=== PATIENT | male | born 1965 | race African-American/Black ===

== ENCOUNTER 2017-07-13 10:41 | Emergency (ER) | payer MEDICARE, MEDICAID ==
[2017-07-13 11:24] LABS: #Eosinphils 0.1 thou/uL (0.0-0.7); #Lymphocytes 1.6 thou/uL (1.20-3.40); #Monocytes 0.6 thou/uL (0.11-0.59); #Neutrophils 6.9 thou/uL (1.40-6.50); %Basophils 0.3 % (0.0-1.0); %Eosinophils 0.9 % (0.0-10.0); %Lymphocytes 17.3 % (21.0-51.0); %Monocytes 6.6 % (0.0-10.0); Mean Platelet Volume 7.2 fL (7.4-10.4); White Blood Cell (WBC) Count 9.3 thou/uL (4.8-10.8)
[2017-07-13 11:48] LABS: CK (CPK) 227 U/L (30-200); Lipase 55 U/L (8-78)
[2017-07-13 11:54] LABS: Troponin I 0.028 ng/mL (< 0.028)
--- NOTE | 2017-07-13 12:12 | RAD ---
CHEST 1 VIEW: Date: 07/13/17 HISTORY: Chest pain. COMPARISON: None. FINDINGS: Portable upright chest redemonstrates a left-sided transvenous pacemaker. Lead position is difficult to determine due to portal technique and underpenetration. Normal cardiac silhouette. No consolidatio n or mass. No obvious pneumothorax. IMPRESSION: Limited evaluation due to portable technique and resultant underpenetration. No acute cardiopulmonary process. Repeat imaging with 2 view chest radiograph is recommended. POS: [facility]
[2017-07-13 12:36] LABS: Bilirubin Negative (Negative); Blood, Urine Moderate (Negative); Glucose, Urine (Dipstick) Negative (Negative); Ketone, Urine Negative (Negative); Nitrite Negative (Negative); Protein, Urine (Dipstick) 300 mg/dL (Neg-Trace)
[2017-07-13 12:38] LABS: Hyaline Casts/LPF 0-3 HYALINE CAST LPF (0-3 Hyaline); Squamous Epithelial None Seen HPF (0-3)
[2017-07-13 12:58] LABS: Bacteria/HPF Rare-Few HPF (None Seen); Yeast-All Forms None Seen HPF (None Seen)
== END 2017-07-13 13:04 | disposition home or self-care (01) ==
LOC: ERS 10:41
DX: T82.118A Breakdown (mechanical) of other cardiac electronic device, initial encounter (principal); I11.0 Hypertensive heart disease with heart failure; I50.9 Heart failure, unspecified; J44.9 Chronic obstructive pulmonary disease, unspecified; E11.9 Type 2 diabetes mellitus without complications; M10.9 Gout, unspecified; E66.9 Obesity, unspecified; E78.5 Hyperlipidemia, unspecified; Z79.82 Long term (current) use of aspirin; Z79.899 Other long term (current) drug therapy
CPT/HCPCS: 36415; 71010; 81003; 81015; 82553; 83690; 84484; 85025; 93005

== ENCOUNTER 2017-08-28 21:00 | Observation (INO) | payer MEDICARE, MEDICAID ==
[2017-08-28] MEDS ORDERED: Nitroglycerin 2% Ointment 1 INCH/1 GM Packet ONE (21:54)
[2017-08-28] MEDS ORDERED: Nitroglycerin 0.4 MG TAB (25 Tab Bottle) ONE (21:54)
[2017-08-28 22:04] LABS: Troponin I 0.017 ng/mL (< 0.028)
[2017-08-29] MEDS ORDERED: Dextrose 5% in Water 1,000 ML IV PRN (00:32)
[2017-08-29] MEDS ORDERED: Dextrose 50% Abboject 50 ML SYRINGE IVP PRN (00:32)
[2017-08-29] MEDS ORDERED: Insulin Regular 300 UNITS/3 ML VIAL SC PRN (00:32)
[2017-08-29] MEDS ORDERED: Acetaminophen 325 MG TAB PO PRN ×2 (00:34→06:19)
[2017-08-29] MEDS ORDERED: Ondansetron HCl/PF 4 MG/2 ML Vial IVP PRN ×2 (00:34→06:19)
[2017-08-29] MEDS ORDERED: Ondansetron ODT 4 MG TAB SL PRN (00:34)
[2017-08-29] MEDS ORDERED: Nitroglycerin 2% Ointment 1 INCH/1 GM Packet TOP SCH (00:45)
[2017-08-29 01:02] LABS: Troponin I 0.019 ng/mL (< 0.028)
[2017-08-29 01:11] VITALS: BMI 68.9
[2017-08-29] MEDS ORDERED: Ondansetron ODT 4 MG TAB PO PRN (06:19)
[2017-08-29] MEDS ORDERED: Milk Of Magnesia 30 ML UDCUP PO PRN (06:19)
[2017-08-29] MEDS ORDERED: Senokot 8.6 MG TAB PO PRN (06:19)
[2017-08-29] MEDS ORDERED: Nitroglycerin 0.4 MG TAB (25 Tab Bottle) PO PRN (06:19)
[2017-08-29] MEDS ORDERED: PROVENTIL INHALER 6.7 G (200 INHALATIONS) INH PRN (06:21)
[2017-08-29] MEDS ORDERED: Aspirin 325 MG TAB PO SCH (09:00)
--- NOTE | 2017-08-29 09:16 | HP ---
DATE OF ADMISSION: 08/29/2017 PRIMARY CARE PHYSICIAN: Florence Almaguer M.D. PRIMARY TOWER EQUIPMENT INSTALLER: Marilu Galan M.D. CHIEF COMPLAINT: Chest discomfort. HISTORY OF PRESENT ILLNESS: Patient is a 52-year-old -[place] male with chronic systolic hea rt failure, status post AICD, morbid obesity with BMI more than 60, diabetes mellitus type 2, and LYRIC D, who presented to the emergency room with chest discomfort. He initially presented to [facility] and was transferred to this facility for hospital admission. Over the last 24 hours, the patient has on and off substernal pressure-like chest discomfort with dayana e intermittent lightheadedness. He also was short of breath at times. He had some palpitations with out any syncope. He denies recent immobilization, travel, fevers or chills. He denies any exertiona l shortness of breath or orthopnea. No recent immobilization or travel reported. He is compliant wi th all of his medications including aspirin. In the emergency room, his initial vital signs showed temperature 98.6, blood pressure 198/121, respi ration of 18, pulse rate of 87 with O2 saturation 93% on room air. His EKG showed sinus rhythm witho ut significant ST-T wave changes. He received aspirin in the emergency room. After transferred to [facility], he received sublingual nitroglycerin as well as 1 inch nitro patch. He denies any ches t discomfort at this time. PAST MEDICAL HISTORY: 1. Chronic systolic heart failure, status post AICD. 2. Diabetes mellitus type 2. 3. Hypertension. 4. Mild intermittent asthma. 5. GERD. 6. Morbid obesity with a BMI more than 60. PAST SURGICAL HISTORY: Defibrillator placement in 2013. ALLERGIES: No known drug allergies. CURRENT HOME MEDICATIONS: Albuterol inhaler as needed, amiodarone 200 mg twice a day, aspirin 81 mg daily, Lipitor 80 mg daily, carvedilol 25 mg three times daily, Lasix 40 mg b.i.d., glipizide extende d release twice daily as needed, hydralazine 100 mg t.i.d., linagliptin/metformin 2.12/999 two tablet s daily, and Entresto 97/103 b.i.d. SOCIAL HISTORY: Patient currently lives at home. No smoking, alcohol or drug use reported. FAMILY HISTORY: Mother with heart disease. REVIEW OF SYSTEMS: The following complete review of systems was negative, unless otherwise mentioned in the HPI or below: Constitutional: Weight loss or gain, ability to conduct usual activities. Skin: Rash, itching. Eyes: Double vision, pain. ENT/Mouth: Nose bleeding, neck stiffness, pain, tenderness. Cardiovascular: Palpitations, dyspnea on exertion, orthopnea. Respiratory: Shortness of breath, wheezing, cough, hemoptysis, fever or night sweats. Gastrointestinal: Poor appetite, abdominal pain, heartburn, nausea, vomiting, constipation, or diarr hea. Genitourinary: Urgency, frequency, dysuria, nocturia. Musculoskeletal: Pain, swelling. Neurologic/Psychiatric: Anxiety, depression. Allergy/Immunologic: Skin rash, bleeding tendency. PHYSICAL EXAMINATION: VITAL SIGNS: At this time showed blood pressure of 140/68. GENERAL: A 52-year-old male, morbidly obese, in no apparent distress. HEENT: Head is atraumatic, normocephalic. Sclerae are anicteric. Moist mucous membrane, no oral le sarah. NECK: Supple, no JVD appreciated. No carotid bruit. LUNGS: Clear to auscultation bilaterally, no wheezing or rales. HEART: S1 and S2 present. Regular rate and rhythm. No murmur, rubs, or gallops appreciated. AICD noted. ABDOMEN: Soft, nontender, bowel sounds present. EXTREMITIES: No edema or calf tenderness. Homans' sign was negative. SKIN: Warm and dry. LYMPH NODES: No palpable lymph nodes in the neck. PERIPHERAL VASCULAR: Radial pulses palpable bilaterally. MUSCULOSKELETAL: No joint swelling or tenderness. NEUROLOGIC: Grossly nonfocal, moves all four extremities. PSYCHIATRY: Alert, awake, and oriented x3. LABORATORY DATA AND IMAGING DATA: 1. Troponins have been negative. CBC showed WBC of 5.3 with hemoglobin 14.4. 2. Chemistries showed sodium 139, potassium 4.1, chloride 103, bicarbonate 26, BUN 16, creatinine 1. 02. 3. BNP was 60.5. 4. EKG by my review as discussed above. 5. Chest x-ray by my review was negative for infiltrate. IMPRESSION: 1. Pressure-like chest discomfort associated with lightheadedness and palpitations. 2. Chronic systolic heart failure, ejection fraction 20%-25% range, status post automated implantabl e cardioverter-defibrillator. 3. Morbid obesity with body mass index more than 60. 4. Hypertension. 5. Diabetes mellitus type 2. 6. Gastroesophageal reflux disease. 7. Mild intermittent asthma. PLAN: The patient will be monitored on telemetry. Cardiology will be consulted. His AICD will be i nterrogated. I considered DVT and pulmonary embolism, which appeared to be less likely. His Doppler of bilateral lower extremity was negative for DVT. His chest pain is not pleuritic. He denies any recent immobilization or travel. He has low Well's score. We will keep him n.p.o. Home medications including Entresto will be restarted. Hold metformin. Insulin sliding scale. Change aspirin to 32 5. Please note that patient was started on Plavix last admission. He is currently not on Plavix. We wi ll discuss with Cardiology, Dr. Galan. Plan of care was discussed with the patient in detail. He stated understanding.
[2017-08-29] MEDS: Sacubitril 49 MG/Valsartan 51 MG TABLET PO SCH ×2 (12:14→20:38)
[2017-08-29] MEDS: hydrALAZINE 25 MG TAB PO SCH ×3 (12:15→20:37)
[2017-08-29] MEDS: Carvedilol 25 MG TAB PO SCH ×3 (12:15→20:37)
[2017-08-29] MEDS: Furosemide 20 MG TAB PO SCH ×2 (12:15→14:29)
[2017-08-29] MEDS: Atorvastatin Calcium 40 MG TAB PO SCH (12:15)
[2017-08-29] MEDS: Amiodarone 200 MG TAB PO SCH ×2 (12:15→20:38)
[2017-08-29] MEDS: Aspirin 325 MG TAB PO SCH (12:16)
[2017-08-29] MEDS ORDERED: Furosemide 100 MG/10 ML VIAL SLOW IVP SCH (16:00)
[2017-08-29] MEDS ORDERED: Spironolactone 25 MG TAB PO SCH (16:00)
--- NOTE | 2017-08-29 23:33 | PRG ---
DATE OF SERVICE: 08/29/2017 SUBJECTIVE: Mr. Henning was admitted to the hospital with chest pressure associated with uncontrolled high blood pressure. Blood pressure is better now. He is feeling better now. OBJECTIVE: VITAL SIGNS: Blood pressure was extremely high initially with blood pressure 198/120, now it was men tioned his blood pressure is improved. LUNGS: Clear. CARDIAC: Normal S1, normal S2. ABDOMEN: Soft, nontender. EXTREMITIES: No edema. ASSESSMENT: 1. Hypertension, difficult to control. 2. Cardiomyopathy. 3. Cardiac catheterization showed no obstructive coronary artery disease, only minimal plaquing on p revious catheterization. 4. Morbid obesity, BMI 69. 5. Normal renal function. PLAN: 1. We will give him a single dose of furosemide. 2. Add spironolactone. 3. Probably home tomorrow if blood pressure is controlled. Defibrillator was checked that looks nor mal. He thinks the Entresto is causing some palpitations, but I doubt that is the cause. Also, inte rrogation of the defibrillator indicates he is volume overloaded. Probably, I also explained why his blood pressure is high.
[2017-08-30 06:15] LABS: Anion Gap 14 mmol/L (10-20); BUN (Urea Nitrogen) 16 mg/dL (8.9-20.6); Calc. Creatinine Clearance 222 mL/min (70-130); Calcium 9.1 mg/dL (7.8-10.44); Carbon Dioxide 27 mmol/L (22-29); Chloride 101 mmol/L (98-107); Estimated GFR-MDRD 80; Glucose 142 mg/dL (70-105); Potassium 3.8 mmol/L (3.5-5.1); Sodium 138 mmol/L (136-145)
[2017-08-30] MEDS: Aspirin 325 MG TAB PO SCH (08:37)
[2017-08-30] MEDS: Sacubitril 49 MG/Valsartan 51 MG TABLET PO SCH ×2 (08:37→20:40)
[2017-08-30] MEDS: Carvedilol 25 MG TAB PO SCH ×3 (08:38→20:40)
[2017-08-30] MEDS: hydrALAZINE 25 MG TAB PO SCH ×3 (08:38→20:40)
[2017-08-30] MEDS: Furosemide 20 MG TAB PO SCH ×2 (08:38→15:10)
[2017-08-30] MEDS: Amiodarone 200 MG TAB PO SCH ×2 (08:39→20:40)
[2017-08-30] MEDS: Spironolactone 25 MG TAB PO SCH (08:39)
[2017-08-30] MEDS: Atorvastatin Calcium 40 MG TAB PO SCH (08:39)
[2017-08-30] MEDS ORDERED: Furosemide 100 MG/10 ML VIAL SLOW IVP SCH (11:15)
[2017-08-30] MEDS ORDERED: Potassium Chloride 20 MEQ TAB PO SCH (11:15)
--- NOTE | 2017-08-30 11:18 | PRG ---
DATE OF SERVICE: 08/30/2017 Mr. Henning feels better, but had some chest tightness last night. The chest heaviness probably was h eart failure. He has no chest pain today. PHYSICAL EXAMINATION: VITAL SIGNS: Blood pressure is improved 152/67, pulse 70. His I&O, he put out almost 5 liters yeste rday. LUNGS: Clear. CARDIAC: Normal S1 and S2. ABDOMEN: Soft, nontender. EXTREMITIES: There is no edema. ASSESSMENT: 1. Congestive heart failure, systolic, acute on chronic, improving. 2. Previous pacemaker defibrillator. 3. He has somewhat widening of his QRS with QRS of 138 on admission, but the more recent QRS looks l elias it is more than 140 range. It is a left bundle branch block pattern. PLAN: 1. Give him an extra dose of Lasix. 2. Probably home tomorrow. Ultimately, he may need an upgrade to a biventricular pacemaker [facility].
--- NOTE | 2017-08-30 11:38 | PDOC.PN ---
- Subjective Encounter Start Date: 08/30/17 Encounter Start Time: 11:35 Patient seen and examined. SOB on mild exertion with intermittent chest pressur. Feels slightly better after diuresis. No overnight events - Objective Resuscitation Status: Resuscitation Status FULL:Full Resuscitation MAR Reviewed: Yes Vital Signs & Weight: Vital Signs (12 hours) Temp Pulse Resp BP BP Pulse Ox 08/30/17 08:38 74 08/30/17 08:00 98.0 F 74 16 08/30/17 07:55 97.9 F 69 20 152/67 H 08/30/17 04:16 98.0 F 74 16 166/89 H 99 08/30/17 02:04 146/90 H 08/30/17 00:03 72 16 141/79 H 97 Weight Weight 458 lb I&O: 08/29/17 08/30/17 08/31/17 06:59 06:59 06:59 Intake Total 480 1568 Output Total 500 4715 Balance -20 -9497 Result Diagrams: 08/30/17 04:25 Additional Labs: Accuchecks 08/30/17 08/29/17 08/29/17 11:18 20:38 17:04 POC Glucose 132 H 133 H 146 H EKG Reviewed by me: Yes (Tele SR) Phys Exam - Physical Examination Constitutional: NAD Respiratory: no wheezing, no rales Scat rhonchi, Symmetrical Cardiovascular: RRR, no rub no heaves/pulsations Gastrointestinal: soft, non-tender, no distention, positive bowel sounds Musculoskeletal: edema present (trace) Neurological: non-focal, moves all 4 limbs Psychiatric: normal affect, A&O x 3 Dx/Plan - Plan out of bed/ambulate, DVT proph w/SCDs IMPRESSION: 1. Chest discomfort. 2. Acute on chronic systolic heart failure (EF 20%-25%) s/p AICD 3. Morbid obesity with body mass index more than 60. 4. Hypertension. 5. Diabetes mellitus type 2. 6. Gastroesophageal reflux disease. 7. Mild intermittent asthma. PLAN: * Cont diuresis per Cardiology * AM labs * Cont Entresto with Aldactone * Cont current meds as below * consult CHF team Review of Systems - Medications/Allergies Allergies/Adverse Reactions: Allergies Allergy/AdvReac Type Severity Reaction Status Date / Time No Known Allergies Allergy Verified 08/29/17 00:54 Medications: Current Medications Acetaminophen (Tylenol) 650 mg PO Q4H PRN PRN Reason: Headache/Fever or Pain Albuterol Sulfate (Proventil Hfa) 1 puff INH Q4H PRN PRN Reason: SOB &/or Wheezing Amiodarone HCl (Cordarone) 200 mg PO BID [facility] Last Admin: 08/30/17 08:39 Dose: 200 mg Aspirin (Ecotrin) 81 mg PO DAILY [facility] Atorvastatin Calcium (Lipitor) 80 mg PO DAILY [facility] Last Admin: 08/30/17 08:39 Dose: 80 mg Carvedilol (Coreg) 25 mg PO TID [facility] Last Admin: 08/30/17 08:38 Dose: 25 mg Furosemide (Lasix) 40 mg PO 0900,1400 [facility] Last Admin: 08/30/17 08:38 Dose: 40 mg Furosemide (Lasix) 80 mg SLOW IVP NOW [facility] Stop: 08/30/17 13:15 Last Admin: 08/30/17 11:17 Dose: 80 mg Hydralazine HCl (Apresoline) 100 mg PO TID [facility] Last Admin: 08/30/17 08:38 Dose: 100 mg Magnesium Hydroxide (Milk Of Magnesium) 30 ml PO DAILYPRN PRN PRN Reason: Constipation Nitroglycerin (Nitrostat) 0.4 mg PO Q5MIN PRN PRN Reason: Chest Pain Ondansetron HCl (Zofran Odt) 4 mg PO Q6H PRN PRN Reason: Nausea/Vomiting Ondansetron HCl (Zofran) 4 mg IVP Q6H PRN PRN Reason: Nausea/Vomiting Potassium Chloride (K-Dur) 40 meq PO NOW [facility] Stop: 08/30/17 13:15 Last Admin: 08/30/17 11:17 Dose: 40 meq Sacubitril/Valsartan (Entresto 49 Mg-51 Mg Tablet) 2 tab PO BID [facility] Last Admin: 08/30/17 08:37 Dose: 2 tab Senna (Senokot) 2 tab PO HSPRN PRN PRN Reason: Constipation Sodium Chloride (Flush - Normal Saline) 10 ml IVF Q12HR [facility] Last Admin: 08/30/17 08:39 Dose: 10 ml Sodium Chloride (Flush - Normal Saline) 10 ml IVF PRN PRN PRN Reason: Saline Flush Spironolactone (Aldactone) 25 mg PO QAM-WM [facility] Last Admin: 08/30/17 08:39 Dose: 25 mg
--- NOTE | 2017-08-31 00:51 | EKG ---
Test Reason : Blood Pressure : / mmHG Vent. Rate : 080 BPM Atrial Rate : 080 BPM P-R Int : 196 ms QRS Dur : 140 ms QT Int : 444 ms P-R-T Axes : 039 -46 071 degrees QTc Int : 512 ms Sinus rhythm with frequent Premature ventricular complexes Left axis deviation Left ventricular hypertrophy with QRS widening Inferior infarct , age undetermined Cannot rule out Anterior infarct , age undetermined Abnormal ECG When compared with ECG of 28-AUG-2017 21:23, (Unconfirmed) Premature ventricular complexes are now Present Left bundle branch block is no longer Present Minimal criteria for Anterior infarct are now Present Inferior infarct is now Present Confirmed by PRANAV JARAMILLO, DR. Watson ([id number]) on 08/31/2017 12:51:35 AM Referred By: MEGHANA Confirmed By:DR. Walter ROCK MD
[2017-08-31 05:35] LABS: Anion Gap 14 mmol/L (10-20); BUN (Urea Nitrogen) 17 mg/dL (8.9-20.6); Calc. Creatinine Clearance 205 mL/min (70-130); Calcium 9.1 mg/dL (7.8-10.44); Carbon Dioxide 28 mmol/L (22-29); Chloride 100 mmol/L (98-107); Estimated GFR-MDRD 75; Glucose 125 mg/dL (70-105); Potassium 3.8 mmol/L (3.5-5.1); Sodium 138 mmol/L (136-145)
[2017-08-31 07:50] VITALS: TEMP 97.8
[2017-08-31] MEDS ORDERED: Aspirin 81 mg Enteric Coated Tablet PO SCH (09:00)
[2017-08-31] MEDS: Amiodarone 200 MG TAB PO SCH (09:25)
[2017-08-31] MEDS: Atorvastatin Calcium 40 MG TAB PO SCH (09:25)
[2017-08-31] MEDS: Carvedilol 25 MG TAB PO SCH (09:25)
[2017-08-31] MEDS: hydrALAZINE 25 MG TAB PO SCH (09:25)
[2017-08-31] MEDS: Furosemide 20 MG TAB PO SCH (09:25)
[2017-08-31] MEDS: Spironolactone 25 MG TAB PO SCH (09:25)
[2017-08-31] MEDS: Sacubitril 49 MG/Valsartan 51 MG TABLET PO SCH (09:26)
--- NOTE | 2017-08-31 09:56 | PRG ---
DATE OF SERVICE: 08/31/2017 SUBJECTIVE: Mr. Henning is breathing better, no complaints, feels much better. No chest pain. PHYSICAL EXAMINATION: VITAL SIGNS: His blood pressure is 148/84, pulse 80, it is regular. LUNGS: Clear. CARDIAC: Normal S1, normal S2. EXTREMITIES: There are some decreased edema. Patient's I and O yesterday was another 2 liters negative. He has been over 5 liters negative since admission, down 19 pounds. ASSESSMENT: Congestive heart failure, systolic, acute on chronic, improved. PLAN: He will go home on the same medicines he came in with the addition of spironolactone 25 mg a d ay, to come back and see me in the office within a month.
--- NOTE | 2017-08-31 10:41 | DIS ---
DATE OF DISCHARGE: 08/31/2017 DISCHARGE DISPOSITION: Home. FOLLOWUP: 1. Follow up with primary care physician, Dr. Florence Almaguer, in 1 week. 2. Follow up with Cardiology, Dr. Galan as scheduled. Base met every week x2, then every 2 weeks x2 is recommended. Primary care physician advised to foll ow. ALLERGIES: No known drug allergies. DISCHARGE MEDICATIONS: Aldactone 25 mg daily, (new medication). Other home medications were resumed including Lasix 40 mg b.i.d., Entresto 97/103 b.i.d., aspirin 81 mg daily, amiodarone 200 mg b.i.d., albuterol inhaler as needed, Lipitor 80 mg daily, carvedilol 25 m g three times daily, glipizide extended release 10 mg twice daily as needed, hydralazine 100 mg three times daily, linagliptin/metformin 2.12/999 two tablets daily. INPATIENT CONSULTANTS: Cardiology, Dr. Galan. BRIEF HOSPITAL COURSE: The patient is a 52-year-old male with chronic systolic heart failure, status post AICD, who presented to the hospital with chest discomfort along with shortness of breath. Bryan willett refer to the history and physical dated 08/29/2017, for further details. The patient was admitted to the hospital with the diagnosis of acute on chronic systolic heart failur e exacerbation. His troponins were normal. He showed good improvement with IV diuretics. His weigh t on the day of discharge is 448 pounds from 467 pounds on admission. He is almost 5 liters negative . He was extensively counseled on heart failure. Aldactone has been added to his regimen. He will benefit from frequent labs while on Aldactone as well as Entersto. He has been cleared by Cardiology for discharge. FINAL DIAGNOSES: 1. Acute on chronic systolic heart failure exacerbation, ejection fraction 20% to 25% range. 2. Status post automatic implantable cardioverter defibrillator. 3. Chest discomfort secondary to #1. 4. Morbid obesity with a BMI of 66.3. 5. Hypertension. 6. Diabetes mellitus type 2. 7. Gastroesophageal reflux disease. 8. Mild intermittent asthma. 9. Chronic kidney disease stage 2. Plan of care was discussed with the patient in detail. He stated understanding.
[2017-08-31 14:38] VITALS: BP 124/60
== END 2017-08-31 12:50 | disposition home or self-care (01) ==
LOC: ERS 21:00 → 2SW 08-29 00:21
PROVIDERS: ADMIT Family Medicine; ATTEND Family Medicine
DX: E11.22 Type 2 diabetes mellitus with diabetic chronic kidney disease (principal); I13.0 Hypertensive heart and chronic kidney disease with heart failure and stage 1 through stage 4 chronic kidney disease, or unspecified chronic kidney disease; N18.2 Chronic kidney disease, stage 2 (mild); I50.23 Acute on chronic systolic (congestive) heart failure; K21.9 Gastro-esophageal reflux disease without esophagitis; J45.20 Mild intermittent asthma, uncomplicated; E66.01 Morbid (severe) obesity due to excess calories; Z68.44 Body mass index [BMI] 60.0-69.9, adult; Z79.82 Long term (current) use of aspirin; Z79.84 Long term (current) use of oral hypoglycemic drugs; Z79.899 Other long term (current) drug therapy; Z95.810 Presence of automatic (implantable) cardiac defibrillator; Z82.49 Family history of ischemic heart disease and other diseases of the circulatory system
CPT/HCPCS: 80048 ×2; 82962 ×3; 83735; 84484 ×2; 93005 ×2; 93798; 94760 ×3; 96374; 96375; 99285; G0378 ×2; 36415; 36416; 93010; A4216; J1940

== ENCOUNTER 2018-06-22 19:07 | Inpatient (IN) | payer MEDICARE, MEDICAID ==
[2018-06-22] MEDS ORDERED: Magnesium 2 GM/50 ML BAG (IN WATER) ONE (20:06)
[2018-06-22] MEDS ORDERED: methylPREDNISolone Sod Succ/PF 125 MG/2 ML VIAL ONE (20:06)
[2018-06-22] MEDS ORDERED: Water For Inject, Bacteriostat 30 ML ONE (20:06)
[2018-06-22] MEDS ORDERED: Labetalol HCl 100 MG/20 ML VIAL ONE (20:06)
[2018-06-22] MEDS ORDERED: Ondansetron ODT 4 MG TAB SL PRN (23:00)
[2018-06-22] MEDS ORDERED: Ondansetron PF 4 MG/2 ML Vial IVP PRN (23:00)
[2018-06-22 23:38] VITALS: BMI 70.9
[2018-06-23] MEDS ORDERED: Ondansetron ODT 4 MG TAB PO PRN ×2 (08:10)
[2018-06-23] MEDS ORDERED: Labetalol HCl 100 MG/20 ML VIAL SLOW IVP PRN (08:10)
[2018-06-23] MEDS ORDERED: Ondansetron PF 4 MG/2 ML Vial IVP PRN ×2 (08:10)
[2018-06-23] MEDS ORDERED: Acetaminophen 325 MG TAB PO PRN (08:10)
[2018-06-23] MEDS ORDERED: HumaLOG 300 UNITS/3 ML VIAL SC PRN ×2 (08:10)
[2018-06-23] MEDS ORDERED: Dextrose 50% Abboject 50 ML SYRINGE SLOW IVP PRN (08:10)
[2018-06-23] MEDS ORDERED: Dextrose 5% in Water 1,000 ML IV PRN (08:10)
[2018-06-23] MEDS ORDERED: hydrALAZINE 20 MG/ML VIAL SLOW IVP PRN (08:10)
--- NOTE | 2018-06-23 08:33 | HP ---
PRIMARY CARE PHYSICIAN: Dr. Almaguer. CHIEF COMPLAINT: Congestion and shortness of breath. HISTORY OF PRESENT ILLNESS: Mr. 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 The last ejection fraction was approximately 30%-35% in 2016. He also h as a history of asthma and COPD. He says he was in his usual state of health until he started having cold. He says he started having congestion, and wheezing about a week ago. He says that it usually would get worse at night. He would have to take a breathing treatment at night in order to sleep an d then the next day, he would feel a little bit better; however, it started to get progressively wors e where he was initially coughing, having a dry cough, but now the cough has been productive of yello wish sputum and it has been very thick and this has been over the last few days. He denies any blood in the sputum. He also says that he was getting progressively more short of breath. The shortness of breath did not seem to be affected by position; however, he does say he cannot sleep flat and lays on 4 pillows, but that has been stable over the last few months. He also denies any fevers or chill s or any chest pain, no nausea, no vomiting. His symptoms got to the point where he came to the ER f or evaluation. A chest x-ray was done; however, due to his body habitus, it was difficult to read, b ut it did not appear to have any excessive fluid buildup and his BNP was in the normal range. Theref ore, he is being admitted for probable chronic obstructive pulmonary disease exacerbation. The patie nt says he has some lower extremity edema. It has been about the same, maybe only slightly increase in usual and again no chest pains, no palpitations, etc. REVIEW OF SYSTEMS: All systems were reviewed and are negative except for that mentioned in the histo ry of present illness. PAST MEDICAL HISTORY: Significant for chronic systolic heart failure, EF of 30%-35%, diabetes mellit us type 2, hypertension, asthma, gastroesophageal reflux disease, obesity, COPD, and obstructive slee p apnea. He is not using a BiPAP. Sleep study was done in 2017 showing severe sleep apnea and was r ecommended BiPAP with an IPAP of 25, EPAP of 15. PAST SURGICAL HISTORY: Has had an AICD. ALLERGIES: No known drug allergies. SOCIAL HISTORY: He is single, but has a girlfriend he has lived for 8 years and the girlfriend could be his surrogate decision maker and her name is Adelita Bridges. He denies any alcohol use or any tobacc o use. He has 2 daughters, age 23 and 11. FAMILY HISTORY: Significant for heart disease. CURRENT MEDICATIONS: Include albuterol inhaler 2 puffs q.4 hours as needed, amiodarone 200 mg twice daily, aspirin 81 mg daily, Lipitor 80 mg at bedtime, carvedilol 25 mg t.i.d., vitamin D3 5000 units daily, Lasix 40 mg twice daily, glipizide 10 mg daily, hydralazine 100 mg t.i.d., Jentadueto XR 2.5 m g/1000 mg daily, omeprazole 20 mg daily, Entresto 97/103 mg twice a day, spironolactone 25 mg daily. PHYSICAL EXAMINATION: GENERAL: He is alert and oriented. He appears to be in no acute distress. He is well developed. Justino art is morbidly obese and his weight is 480 pounds and he is 5 feet 9 inches. The BMI was 70.9. VITAL SIGNS: The blood pressure initially was elevated at 234/154, now it is 160/95, heart rate 93, respiratory rate of 22, temperature is 98.6. HEENT: Pupils are equal, round, and reactive. Extraocular muscles are intact. Sclerae are anicteri c. Throat: There is no erythema, no exudates. NECK: No adenopathy, no bruits, no jugular venous distention. LUNGS: He had some coarse breath sounds, possible rhonchi at the bases, but no overt rales, no wheez ing was noted. CARDIOVASCULAR: Heart tones were distant. He had a normal S1 and S2 that was appreciated. I was no t able to appreciate any murmurs, clicks or rubs. ABDOMEN: Obese, it was soft, nontender, nondistended. No appreciable organomegaly. EXTREMITIES: He had some nonpitting edema. There is no redness, no warmth. NEUROLOGIC: His cranial nerves II through XII are intact. Muscle strength is 5/5 in both his upper and lower extremities. SKIN AND INTEGUMENT: There are no skin changes. No rash. LABORATORY WORK: White blood cell count 4.6, hemoglobin 14.7, hematocrit is 45.5, platelet count was 171. His sodium is 142, potassium 4.4, chloride is 103, CO2 is 28, BUN of 16, creatinine of 1.37, g lucose is 136 and he had a BNP which was 51. IMAGING STUDIES: His chest x-ray and this is by my reading is poorly penetrated. He had a mild card iomegaly and possible increase in his pulmonary vascular markings in the right base. The diaphragms were obscured, but this is likely due to poor penetration due to his body habitus. ASSESSMENT AND PLAN: This is a pleasant 53-year-old gentleman who presents with progressive cough an d congestion and shortness of breath. His chest x-ray was essentially clear. BNP was within the nor mal range. Therefore, it is likely that this does represent a chronic obstructive pulmonary disease exacerbation. He also had an extremely elevated blood pressure on admission with a systolic above 20 0 and diastolic, which was quite elevated. I am unsure what size of cuff they used, but he could hav e some mild pulmonary edema associated or congestive heart failure exacerbation associated with hyper tensive urgency. He will therefore be admitted to telemetry. 1. With regards to the chronic obstructive pulmonary disease exacerbation, we will place him on empi donaldo IV antibiotics, IV steroids for very short course, DuoNeb and consider a long-acting beta agonist . 2. Hypertensive urgency. This appears to have improved. We will continue his usual home medication s and p.r.n. blood pressure medications. 3. Chronic systolic heart failure. We will continue his home medications. 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 4. Diabetes mellitus. We will continue his usual medications along with a sliding scale insulin. 5. For the obstructive sleep apnea, he may require BiPAP while or CPAP while in the hospital. We ca n use the settings that were indicated on his sleep study a year ago if necessary and I have encourag ed him to follow up with trying to obtain a BiPAP machine in the outpatient setting.
[2018-06-23] MEDS ORDERED: LINAGLIPTIN PO SCH (09:00)
[2018-06-23] MEDS ORDERED: METFORMIN HCL PO SCH (09:00)
[2018-06-23] MEDS ORDERED: [UNRECOGNIZED DRUG - OTHER] PO SCH (09:00)
[2018-06-23] MEDS: Heparin 5,000 UNITS/ML VIAL SC SCH ×3 (09:33→21:55)
[2018-06-23] MEDS: Furosemide 40 MG TAB PO SCH ×2 (09:36→21:56)
[2018-06-23] MEDS: metFORMIN XR 500 MG TAB PO SCH (09:37)
[2018-06-23] MEDS: hydrALAZINE 25 MG TAB PO SCH ×3 (09:38→21:56)
[2018-06-23] MEDS: Amiodarone 200 MG TAB PO SCH ×2 (09:39→21:56)
[2018-06-23] MEDS: Aspirin 81 mg Enteric Coated Tablet PO SCH (09:40)
[2018-06-23] MEDS: Carvedilol 25 MG TAB PO SCH ×3 (09:40→21:56)
[2018-06-23] MEDS: Alogliptin 25 MG TAB PO SCH (09:40)
[2018-06-23] MEDS: Sacubitril 49 MG/Valsartan 51 MG TABLET PO SCH ×2 (11:09→21:55)
[2018-06-23] MEDS ORDERED: Sodium Chloride 0.9% 10 ML ONE (17:57)
[2018-06-23] MEDS: Atorvastatin Calcium 40 MG TAB PO SCH (21:56)
[2018-06-24 05:46] LABS: Anion Gap 13 mmol/L (10-20); BUN (Urea Nitrogen) 24 mg/dL (8.4-25.7); Calc. Creatinine Clearance 209 mL/min (70-130); Calcium 8.7 mg/dL (7.8-10.44); Carbon Dioxide 28 mmol/L (22-29); Chloride 100 mmol/L (98-107); Estimated GFR-MDRD 71; Glucose 113 mg/dL (70-105); Sodium 137 mmol/L (136-145)
[2018-06-24 06:39] LABS: #Lymphocytes 1.3 thou/uL (1.20-3.40); #Monocytes 0.9 thou/uL (0.11-0.59); #Neutrophils 5.6 thou/uL (1.40-6.50); %Basophils 0.4 % (0.0-1.0); %Eosinophils 0.1 % (0.0-10.0); %Lymphocytes 16.8 % (21.0-51.0); %Monocytes 10.9 % (0.0-10.0); %Neutrophils 71.8 % (42.0-75.0); Hemoglobin 15.3 g/dL (14.0-18.0); Mean Corpuscular HGB CONC 30.7 g/dL (32.0-36.0); Mean Corpuscular Hemoglobin 29.1 pg (27.0-31.0); Mean Corpuscular Volume 94.9 fL (78.0-98.0); Mean Platelet Volume 8.3 fL (7.4-10.4); Platelet Count 228 thou/uL (130-400); Red Blood Cell (RBC) Count 5.25 mill/uL (4.70-6.10); White Blood Cell (WBC) Count 7.8 thou/uL (4.8-10.8)
[2018-06-24] MEDS: Spironolactone 25 MG TAB PO SCH (09:45)
[2018-06-24] MEDS: Sodium Chloride 0.9% 10 ML ONE (09:45)
[2018-06-24] MEDS: metFORMIN XR 500 MG TAB PO SCH (09:46)
[2018-06-24] MEDS: Sacubitril 49 MG/Valsartan 51 MG TABLET PO SCH ×2 (09:46→20:32)
[2018-06-24] MEDS: Furosemide 40 MG TAB PO SCH ×2 (09:46→20:32)
[2018-06-24] MEDS: hydrALAZINE 25 MG TAB PO SCH ×3 (09:47→20:32)
[2018-06-24] MEDS: Amiodarone 200 MG TAB PO SCH ×2 (09:47→20:32)
[2018-06-24] MEDS: Carvedilol 25 MG TAB PO SCH ×3 (09:47→20:32)
[2018-06-24] MEDS: Aspirin 81 mg Enteric Coated Tablet PO SCH (09:48)
[2018-06-24] MEDS: Alogliptin 25 MG TAB PO SCH (09:48)
[2018-06-24] MEDS: Heparin 5,000 UNITS/ML VIAL SC SCH ×3 (09:55→20:32)
--- NOTE | 2018-06-24 11:33 | PDOC.PN ---
- Subjective Encounter Start Date: 06/24/18 Encounter Start Time: 11:32 was seen today in follow-up.He says he is less short of breath this morning. 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 - Objective Resuscitation Status: Resuscitation Status FULL:Full Resuscitation MAR Reviewed: Yes Vital Signs & Weight: Vital Signs (12 hours) Temp Pulse Resp BP BP BP Pulse Ox 06/24/18 09:47 81 177/105 H 06/24/18 08:00 98 06/24/18 07:20 98.3 F 81 20 177/105 H 98 06/24/18 06:33 79 14 90 L 06/24/18 04:30 98.3 F 77 14 150/80 H 91 L Weight Admit Weight 480 lb 1 oz Weight 479 lb 9 oz I&O: 06/23/18 06/24/18 06/25/18 06:59 06:59 06:59 Intake Total 960 1080 Output Total 800 1750 Balance 160 -670 Result Diagrams: 06/24/18 05:03 06/24/18 05:03 Additional Labs: Accuchecks 06/24/18 06/23/18 06/23/18 06:04 20:42 17:24 POC Glucose 88 138 H 115 H Phys Exam - Physical Examination HEENT: PERRLA Respiratory: no rales, no rhonchi, wheezing present + scattered wheezing bilaterally, no rales Cardiovascular: RRR, no significant murmur, no rub no gallop Gastrointestinal: soft, non-tender, no distention, positive bowel sounds Musculoskeletal: edema present 2+ pitting edema in the lower extremities Neurological: non-focal Dx/Plan (1) Acute bronchitis with asthma Code(s): J20.9 - ACUTE BRONCHITIS, UNSPECIFIED; J45.909 - UNSPECIFIED ASTHMA, UNCOMPLICATED Status: Acute (2) Acute respiratory failure Code(s): J96.00 - ACUTE RESPIRATORY FAILURE, UNSP W HYPOXIA OR HYPERCAPNIA Status: Acute (3) Diabetes mellitus type 2 in obese Code(s): E11.69 - TYPE 2 DIABETES MELLITUS WITH OTHER SPECIFIED COMPLICATION; E66.9 - OBESITY, UNSPECIFIED Status: Chronic (4) Hypertension Code(s): I10 - ESSENTIAL (PRIMARY) HYPERTENSION Status: Chronic (5) Morbid obesity with BMI of 70 and over, adult Code(s): E66.01 - MORBID (SEVERE) OBESITY DUE TO EXCESS CALORIES; Z68.45 - BODY MASS INDEX (BMI) 70 OR GREATER, ADULT Status: Chronic - Plan * Acute respiratory failure due to Bronchitis- will continue IV Levaquin, and Duoneb treatments. He could have Pneumonia ( ? Infiltrate in the right base)- but due to his body habitus this is difficult to determine. * Hypertensive Urgency- this has resolved- but his blood pressure is still elevated- will add Amlodipine * DM- blood glucose is stable * Chronic systolic heart failure- compensated * If he continues to improve then discharge home in AM
[2018-06-24] MEDS: Amlodipine 5 MG TAB PO SCH (17:51)
[2018-06-24] MEDS: Atorvastatin Calcium 40 MG TAB PO SCH (20:32)
[2018-06-25] MEDS: Heparin 5,000 UNITS/ML VIAL SC SCH ×2 (09:41→15:59)
[2018-06-25] MEDS: Sacubitril 49 MG/Valsartan 51 MG TABLET PO SCH (09:43)
[2018-06-25] MEDS: metFORMIN XR 500 MG TAB PO SCH (09:44)
[2018-06-25] MEDS: Amiodarone 200 MG TAB PO SCH (09:45)
[2018-06-25] MEDS: hydrALAZINE 25 MG TAB PO SCH ×2 (09:45→15:59)
[2018-06-25] MEDS: Furosemide 40 MG TAB PO SCH (09:46)
[2018-06-25] MEDS: Carvedilol 25 MG TAB PO SCH ×2 (09:46→16:00)
[2018-06-25] MEDS: Aspirin 81 mg Enteric Coated Tablet PO SCH (09:46)
[2018-06-25] MEDS: Spironolactone 25 MG TAB PO SCH (09:46)
[2018-06-25] MEDS: Alogliptin 25 MG TAB PO SCH (09:46)
[2018-06-25] MEDS: Sodium Chloride 0.9% 10 ML ONE (09:47)
--- NOTE | 2018-06-25 13:39 | PDOC.PN ---
- Subjective Encounter Start Date: 06/25/18 Encounter Start Time: 11:30 -: old records requested/rev Pt seen and examined, chart reviewed in its entirety, this is my first visit with this patient follow up for: No F/C, no N/V/D/C, no CP or SOB All systems reviewed and neg except as above - Objective Resuscitation Status: Resuscitation Status FULL:Full Resuscitation MAR Reviewed: Yes Vital Signs & Weight: Vital Signs (12 hours) Temp Pulse Resp BP BP BP Pulse Ox 06/25/18 12:35 98.2 F 78 16 152/71 H 100 06/25/18 09:45 83 173/69 H 06/25/18 08:00 97.8 F 83 18 173/69 H 97 06/25/18 06:36 78 16 93 L 06/25/18 04:25 97.7 F 83 17 147/72 H 93 L Weight Admit Weight 480 lb 1 oz Weight 475 lb 1 oz I&O: 06/24/18 06/25/18 06/26/18 06:59 06:59 06:59 Intake Total 1080 1120 Output Total 1750 2000 Balance -670 -880 Result Diagrams: 06/24/18 05:03 06/24/18 05:03 Additional Labs: Accuchecks 06/25/18 06/25/18 06/24/18 10:53 05:55 20:30 POC Glucose 74 84 119 H 06/24/18 16:53 POC Glucose 82 Radiology Reviewed by me: Yes EKG Reviewed by me: Yes Dx/Plan (1) Acute bronchitis with asthma Code(s): J20.9 - ACUTE BRONCHITIS, UNSPECIFIED; J45.909 - UNSPECIFIED ASTHMA, UNCOMPLICATED Status: Acute (2) Acute respiratory failure Code(s): J96.00 - ACUTE RESPIRATORY FAILURE, UNSP W HYPOXIA OR HYPERCAPNIA Status: Acute (3) Diabetes mellitus type 2 in obese Code(s): E11.69 - TYPE 2 DIABETES MELLITUS WITH OTHER SPECIFIED COMPLICATION; E66.9 - OBESITY, UNSPECIFIED Status: Chronic (4) Asthma Code(s): J45.909 - UNSPECIFIED ASTHMA, UNCOMPLICATED Status: Acute (5) Congestive heart failure (CHF) Code(s): I50.9 - HEART FAILURE, UNSPECIFIED Status: Acute Qualifiers: Qualified Code(s): I50.22 - Chronic systolic (congestive) heart failure (6) Diabetes type 2, uncontrolled Code(s): E11.65 - TYPE 2 DIABETES MELLITUS WITH HYPERGLYCEMIA Status: Acute (7) GERD (gastroesophageal reflux disease) Code(s): K21.9 - GASTRO-ESOPHAGEAL REFLUX DISEASE WITHOUT ESOPHAGITIS Status: Acute (8) Ventricular tachycardia Code(s): I47.2 - VENTRICULAR TACHYCARDIA Status: Acute (9) Hypertension Code(s): I10 - ESSENTIAL (PRIMARY) HYPERTENSION Status: Chronic (10) Morbid obesity with BMI of 70 and over, adult Code(s): E66.01 - MORBID (SEVERE) OBESITY DUE TO EXCESS CALORIES; Z68.45 - BODY MASS INDEX (BMI) 70 OR GREATER, ADULT Status: Chronic - Plan * .
[2018-06-25 15:58] VITALS: BP 179/97; TEMP 98.5
[2018-06-25] MEDS: Amlodipine 5 MG TAB PO SCH (16:00)
--- NOTE | 2018-06-27 15:43 | PQF ---
JESUS NAVARRETE JR, TONI MD [id number] [facility]-256 [id number] CLINICAL DOCUMENTATION CLARIFICATION FORM: POST DISCHARGE Addendum to original discharge summary date: ____ Late entry note date: __ DATE: 06/27/2018 ATTN: DR. WEAVER Please exercise your independent, professional judgment in responding to the clarification form. Clinical indicators are provided on the bottom of this form for your review Please check appropriate box(s): [ ] Acute Respiratory Failure: [ ] with Hypoxia[ ] with Hypercapnia [ X ] Acute On Chronic Respiratory Failure: [ ] with Hypoxia [ ] with Hypercapnia [ ] Acute Respiratory Failure due to: (etiology) [ ] Hypoxia [ ] Other diagnosis [ ] Unable to determine In addition, please specify: Present on Admission (POA): [ X] Yes [ ] No [ ] Unable to determine For continuity of documentation, please document condition throughout progress notes and discharge summary. Thank You. CLINICAL INDICATORS - SIGNS / SYMPTOMS / LABS: ER report - hypoxia H&P - COPD exac PN - Acute respiratory failure, unspecified RISK FACTORS: CHF exac Morbid obesity HTN DM TREATMENTS: Respiratory treatments - Duoneb treatments Serial CXR Antibiotics IV - Levaquin (This form is maintained as a part of the permanent medical record) 2014 [email or web address], [employer]. All Rights Reserved Vonda Mckay, CCS, DRY BOSS-H [email or web address] [phone] MTDD
== END 2018-06-25 18:23 | disposition home or self-care (01) | DRG 189 ==
LOC: ERS 19:07 → 2NO 20:00
PROVIDERS: ADMIT Family Medicine; ATTEND Family Medicine
DX: J96.20 Acute and chronic respiratory failure, unspecified whether with hypoxia or hypercapnia (principal); J44.1 Chronic obstructive pulmonary disease with (acute) exacerbation; I47.2 Ventricular tachycardia; Z68.45 Body mass index [BMI] 70 or greater, adult; I50.22 Chronic systolic (congestive) heart failure; J44.0 Chronic obstructive pulmonary disease with (acute) lower respiratory infection; I11.0 Hypertensive heart disease with heart failure; G47.33 Obstructive sleep apnea (adult) (pediatric); I16.0 Hypertensive urgency; J20.9 Acute bronchitis, unspecified; E11.65 Type 2 diabetes mellitus with hyperglycemia; K21.9 Gastro-esophageal reflux disease without esophagitis; E66.01 Morbid (severe) obesity due to excess calories; Z79.84 Long term (current) use of oral hypoglycemic drugs; Z95.810 Presence of automatic (implantable) cardiac defibrillator
CPT/HCPCS: 36415; 36416; 80048; 85025; 94640; 94760; 96365; 96375; J1644; J1956; J2920; J2930; J7620

== ENCOUNTER 2018-11-13 22:53 | Observation (INO) | payer MEDICARE, MEDICAID ==
--- NOTE | 2018-11-13 23:41 | RAD ---
FEXAM: Portable chest PROVIDED CLINICAL HISTORY: Defibrillator lateral shock COMPARISON: 10/26/2018 FINDINGS: Evaluation is limited by patient body habitus. Cardiac and mediastinal silhouette unchanged in appear ance. No focal consolidation, pleural fluid or pneumothorax evident. Left subclavian cardiac pacing d evice is redemonstrated in similar position. IMPRESSION: No evidence for an acute cardiopulmonary process.
[2018-11-13 23:48] LABS: #Basophils 0.1 thou/uL (0.0-0.2); #Eosinphils 0.1 thou/uL (0.0-0.7); #Lymphocytes 1.6 thou/uL (1.20-3.40); #Monocytes 0.7 thou/uL (0.11-0.59); #Neutrophils 3.7 thou/uL (1.40-6.50); %Basophils 1.1 % (0.0-1.0); %Eosinophils 1.2 % (0.0-10.0); %Lymphocytes 26.4 % (21.0-51.0); %Neutrophils 60.3 % (42.0-75.0); Mean Corpuscular HGB CONC 32.2 g/dL (32.0-36.0); Mean Corpuscular Hemoglobin 29.4 pg (27.0-31.0); Mean Corpuscular Volume 91.2 fL (78.0-98.0); Mean Platelet Volume 7.4 fL (7.4-10.4); Platelet Count 269 thou/uL (130-400); RBC Distribution Width 12.3 % (11.5-14.5); Red Blood Cell (RBC) Count 5.12 mill/uL (4.70-6.10); White Blood Cell (WBC) Count 6.1 thou/uL (4.8-10.8)
[2018-11-14 00:08] LABS: ALT (SGPT) 11 U/L (8-55); AST (SGOT) 14 U/L (5-34); Albumin 3.4 g/dL (3.5-5.0); Alkaline Phosphatase 44 U/L (40-150); Anion Gap 12 mmol/L (10-20); BUN (Urea Nitrogen) 26 mg/dL (8.4-25.7); Bilirubin, Total 0.4 mg/dL (0.2-1.2); Calc. Creatinine Clearance 0 mL/min (70-130); Calcium 8.6 mg/dL (7.8-10.44); Carbon Dioxide 28 mmol/L (22-29); Chloride 102 mmol/L (98-107); Estimated GFR-MDRD 70; Globulin 3.8 g/dL (2.4-3.5); Glucose 160 mg/dL (70-105); Potassium 4.1 mmol/L (3.5-5.1); Protein, Total 7.2 g/dL (6.0-8.3); Sodium 138 mmol/L (136-145)
[2018-11-14] MEDS ORDERED: hydrALAZINE 20 MG/ML VIAL ONE (01:04)
[2018-11-14] MEDS ORDERED: Magnesium 2 GM/50 ML BAG (IN WATER) ONE (01:04)
[2018-11-14 02:13] LABS: Troponin I 0.014 ng/mL (< 0.028)
[2018-11-14 06:58] LABS: Troponin I Less than 0.010 ng/mL (< 0.028)
--- NOTE | 2018-11-14 07:36 | ULT ---
FPRELIMINARY REPORT/[facility]/EMERGENCY AFTER HOURS PROCEDURE: EXAM: US Duplex Left Lower Extremity Veins, Limited EXAM DATE/TIME: 11/13/2018 11:47 PM CLINICAL HISTORY: 53 years old, male; Pain and signs and symptoms; Edema, localized; Lower extremity, left; Leg, lower and other: Lt ankle pain/edema; Additional info: HX: Dvt lt pop TECHNIQUE: Imaging protocol: Real-time Duplex ultrasound of the Left Lower Extremity with 2-D shay scale, color Doppler flow and spectral waveform analysis. Limited exam focused on the left lower extremity veins. COMPARISON: No relevant prior studies available. FINDINGS: Left deep veins: The common femoral, femoral, popliteal and visualized calf veins are patent without thrombus. Normal compressibility, augmentation response and Doppler waveforms. Left superficial veins: Saphenofemoral junction is patent without thrombus. Soft tissues: Ankle edema. No popliteal cyst. IMPRESSION: No evidence of deep vein thrombosis. Thank you for allowing us to participate in the care of your patient. Dictated and Authenticated by: Jh Argueta MD 11/14/2018 12:46 AM Central Time ([place] & [place]) FINAL REPORT US Venous Doppler Lt Unilat History: [Left leg swelling, edema] Comparison: Bilateral lower extremities venous Doppler 2016 FINDINGS/IMPRESSION: Real-time grayscale, color, and spectral analysis of the left lower extremity venous system was perf ormed. The common femoral, femoral, proximal portion greater saphenous and deep femoral vein as well as the popliteal and posterior tibial veins were interrogated. The findings and impression are concordant with the preliminary report. Transcribed Date/Time: 11/14/2018 7:55 AM
[2018-11-14] MEDS ORDERED: Acetaminophen 325 MG TAB PO PRN (08:23)
[2018-11-14] MEDS ORDERED: Amiodarone 200 MG TAB PO SCH ×2 (09:00→21:00)
[2018-11-14] MEDS ORDERED: hydrALAZINE 25 MG TAB ONE (09:14)
[2018-11-14] MEDS ORDERED: Aspirin Chewable 81 MG TAB ONE (09:14)
[2018-11-14] MEDS: Aspirin 81 mg Enteric Coated Tablet PO SCH (09:19)
[2018-11-14] MEDS: hydrALAZINE 25 MG TAB PO SCH ×3 (09:20→22:01)
[2018-11-14] MEDS: Carvedilol 25 MG TAB PO SCH ×3 (10:14→22:02)
[2018-11-14] MEDS ORDERED: Ondansetron PF 4 MG/2 ML Vial IVP PRN (12:24)
[2018-11-14] MEDS ORDERED: Ondansetron ODT 4 MG TAB PO PRN (12:24)
[2018-11-14 14:01] VITALS: BMI 72.8
[2018-11-14] MEDS: Amiodarone 200 MG TAB PO SCH ×2 (15:23→22:02)
--- NOTE | 2018-11-14 18:24 | CON ---
DATE OF CONSULTATION: 11/14/2018 HISTORY OF PRESENT ILLNESS: I am seeing Mr. Henning at our [facility] Telemetry Floor as an electrophysiology rehab consultant. His problems are: 1. Ventricular tachycardia and subsequent ICD shock. a. Preceding episode of atrial fibrillation, unclear duration, converted back to sinus rhythm with ICD shocks. b. Episode possible probable by noncompliance with amiodarone for running out of 4 weeks. ALLERGIES: NONE. MEDICATIONS: At home included Tylenol, Cordarone 200 mg twice a day, Ecotrin, Lipitor, Coreg, Apresoline, and Entresto 49/51 mg one tablet twice a day. SUBJECTIVE: Mr. Henning is here after an epidural ICD shock, this occurred while he was filling up his car with gas. Some of the routine physical activity for him. Not preceded by any other symptomatology. Denies chest pains or worsening dyspnea recently. He has mild orthopnea, but it is chronic, was able to lay flat and sleep at night on his stomach or side. Denies dizziness or loss of consciousness. No stroke-like symptoms. No neurological deficits. Rest of 12-point review of systems negative. PAST MEDICAL HISTORY: As above. This gentleman has history of chronic systolic congestive heart failure with nonischemic cardiomyopathy, reduced LV systolic function, morbid obesity 490 pounds, type 2 diabetes, asthma, gout. He had an ICD implanted in the past single-chamber device. I have seen him back in the hospital in July 2016 and his presentation was very similar. At that point, amiodarone was increased to 200 mg twice a day. SOCIAL HISTORY: The patient denies smoking, EtOH, or drug abuse. He is disabled. FAMILY HISTORY: Significant for heart disease, diabetes, and hypertension. OBJECTIVE: VITAL SIGNS: Blood pressure is 180/102, heart rate 84, respirations 18, and temperature 98.6 degrees Fahrenheit. GENERAL: Alert and oriented morbidly obese man, in no apparent distress. NECK: Supple. Jugular veins difficult to visualize. CHEST: Coarse. No crackles. HEART: Sounds are distant and regular. No murmur or gallop. ABDOMEN: Benign. Bowel sounds positive. EXTREMITIES: Lower extremities without edema, clubbing, or cyanosis. Pulses are adequate. NEUROLOGIC: The patient is nonfocal. MUSCULOSKELETAL: Without joint swelling or deformity. SKIN: Without rash. DATABASE: White cell count 6.1, hemoglobin 15, platelet count 269. Sodium 138, potassium 4.1, BUN is 26 and creatinine 1.3. The EKG reviewed, revealing sinus rhythm, rate of 90 beats per minute. QRS duration 106 milliseconds. Left axis deviation is seen. The telemetry strips revealed continued sinus rhythm. The interrogation of his device reveals a [employer] Secura VR single-chamber ICD , the better voltage 2.83 V above the THEATRICAL RIGGER, which would be 2.63 mckee. Lead impedances are adequate at 380 ohms. Sensing appropriate 5.9 mV. Capture threshold 1.25 V at 0.4 millisecond. Interrogation of the episodes reveals an irregular rhythm, likely atrial fibrillation preceding the episode of ventricular tachycardia on this morning, which suddenly organized to a very regularized episode. The ventricular tachycardia cycle length is about 240 milliseconds. Single ATP therapy attempted, but failed to terminate the arrhythmia, which ICD shock at 34 joules promptly terminated the ventricular tachycardia. The troponin levels are 0.014 x3. AST and ALT are 14 and 11. ASSESSMENT AND PLAN: Mr. Henning is a pleasant 53-year-old morbidly obese gentleman with a history of cardiomyopathy, likely nonischemic, who has a single-chamber ICD in place with a prior episode of afib provoked ventricular tachycardia and ICCD shock about 2 years ago. He has been on maintenance amiodarone and he missed about a week worth of amiodarone due to running out of medication, eventually started about 4 days prior to this likely still has lower levels. This might contribute to recurrence of atrial fibrillation and possible ventricular tachycardia as well. Just before, I suspect the atrial fibrillation might be proarrhythmic for him and does induce ventricular tachycardia. It seems to be doing well in sinus rhythm. Since a single-chamber device, the exact duration episodes of atrial fibrillation difficult to elicit, but he was in atrial fibrillation prior to his ventricular tachycardia and now maintaining sinus rhythm. We discussed treatment options clearly due to his extreme obesity with a BMI of 73, currently that is likely prohibitive for invasive ablation procedures. He will clearly need to lose excessive amount of weights prior to considering that. On the other hand, he has been doing well on somewhat increased dose of amiodarone, which likely is adequate for his body habitus, though. My plan would be to reload him with amiodarone. We put him back on 200 twice a day dose. He might need a 90-day supply to improve his compliance with this medication. While on his medication, chest x-rays and liver function tests are advised. For now, the current tests do not indicate any complications from the amiodarone therapy. Cardiomyopathy with history of reduced LVEF as per Dr. Tucker for further management. Continue Entresto. We will follow with you. Job ID: [id number] MTDD
[2018-11-14] MEDS ORDERED: Atorvastatin Calcium 40 MG TAB PO SCH (21:00)
--- NOTE | 2018-11-14 21:14 | CON ---
DATE OF CONSULTATION: HISTORY OF PRESENT ILLNESS: The patient is a pleasant 53-year-old gentleman who presented after he got lightheaded and dizzy and felt his AICD had fired. The patient has a history of cardiomyopathy. He has previously undergone a cardiac catheterization and found to have ectatic coronary vessels. The patient has been on medical therapy. He has had placement of automatic implantable cardiac defibrillator. He has been treated with amiodarone for ventricular tachycardia. The patient presents when he suddenly became weak and lightheaded. He felt the AICD fired. He did not lose consciousness. The patient denied having any chest discomfort. PAST MEDICAL HISTORY: 1. Cardiomyopathy. 2. Coronary artery disease. 3. Diabetes mellitus. 4. Hypertension. 5. Dyslipidemia. 6. Morbid obesity. 7. Sleep apnea. 8. Asthma. PAST SURGICAL HISTORY: None. SOCIAL HISTORY: Nonsmoker. No excessive use of alcohol. ALLERGIES: NO KNOWN DRUG ALLERGIES. FAMILY HISTORY: Positive family history of coronary artery disease. MEDICATIONS: See nursing list. REVIEW OF SYSTEMS: Ten-point system otherwise unremarkable. PHYSICAL EXAMINATION: GENERAL: Morbidly obese gentleman, in no acute distress. VITAL SIGNS: Blood pressure 182/102. NECK: Full. LUNGS: Clear to auscultation. HEART: Regular rate and rhythm. Normal S1, S2. No murmurs. ABDOMEN: Distended. EXTREMITIES: Showed no edema. VASCULAR: Radial pulses 2+. LABORATORY RESULTS: Sodium 138, potassium 4.1, chloride 102, bicarbonate 28, BUN 26, creatinine 1.3, glucose 160. Troponin less than 0.01. BNP was 67. White blood cell count 6.1, hemoglobin 15.0, hematocrit 46.7, platelets 269. His EKG revealed normal sinus rhythm, first-degree AV block, Q-waves, poor R-wave progression and Q-waves suggestive of previous inferior infarct. IMPRESSION: 1. Status post automatic implantable cardioverter-defibrillator firing. 2. Ventricular tachycardia. 3. Cardiomyopathy. 4. Coronary artery disease. 5. Hypertension. 6. Diabetes mellitus. 7. Morbid obesity. PLAN: This gentleman presents after his AICD firing. The patient has been on amiodarone. He states he has been out of it for only a few days. From a cardiac standpoint, we will ask EP to evaluate whether he should remain to best manage his antiarrhythmic medication. We will restart his Entresto and follow this patient with you through his hospitalization. Job ID: [id number] MTDD
[2018-11-14] MEDS: Sacubitril 49 MG/Valsartan 51 MG TABLET PO SCH (22:03)
--- NOTE | 2018-11-15 05:21 | HP ---
CHIEF COMPLAINT: AICD firing. HISTORY OF PRESENT ILLNESS: The patient is a very pleasant 53-year-old male with a history of systolic heart failure, CAD, hypertension, obesity, who presents to the hospital with complaints of AICD firing. The patient stated that he was at a gas station getting some gas when he started feeling dizzy and his AICD fired. The patient at that time got in his car and drove to his sister's house, where he called EMS. The patient stated that it fired only once. The patient states that for the past 4 or 5 days, he has been feeling unwell. He has been having some cough, body aches and pains and states that he recently had an upper respiratory tract infection. The patient states that he ran out of his amiodarone and has not been taking it for the past 2 days. He denies any chest pain or chest discomfort. PAST MEDICAL HISTORY: 1. Cardiomyopathy. 2. Coronary artery disease. 3. Diabetes. 4. Hypertension. 5. Dyslipidemia. 6. Morbid obesity. 7. Sleep apnea. 8. Asthma. PAST SURGICAL HISTORY: He has an AICD. ALLERGIES: HE HAS NO KNOWN DRUG ALLERGIES. MEDICATIONS: He is on; 1. Lipitor 80 mg at bedtime. 2. Carvedilol 25 mg b.i.d. 3. Amiodarone 200 mg daily. 4. Lasix 40 mg b.i.d. 5. Glipizide 10 mg daily. 6. Hydralazine 100 mg t.i.d. 7. Omeprazole 20 mg daily. 8. Jentadueto XR 2.5 mg/1000 mg daily. 9. Entresto 97/103 mg twice a day. 10. Spironolactone 25 mg daily. FAMILY HISTORY: Significant for heart disease. SOCIAL HISTORY: He denies any alcohol use or tobacco use. He lives alone and he is currently a full code. REVIEW OF SYSTEMS: All negative except for the ones mentioned above in the HPI. PHYSICAL EXAMINATION: VITAL SIGNS: Are as of the following; temperature 98.1, heart rate of 87, saturation 93% on room air, blood pressure 178/89. GENERAL: He is awake, alert, and oriented x3. Does not appear in any distress. HEENT: Normocephalic, atraumatic. No lymphadenopathy noted. Pupils are equal and reactive to light. No erythema or exudate noted. NECK: No adenopathy. No bruit or JVD distention noted. LUNGS: He has some mild crackles to bilateral lower bases, otherwise normal. CV: S1, S2 present. No murmurs, rubs, or gallops. He does have an AICD. ABDOMEN: Obese, soft, nontender. Bowel sounds are present x2. EXTREMITIES: He does have some mild pitting edema to bilateral lower extremities. NEURO: He is able to move bilateral upper extremities and bilateral lower extremities without any issues. SKIN: He does have some dryness of the skin to bilateral lower extremities, otherwise grossly normal. LABORATORY RESULTS: Are as of the following; WBCs of 6.1, hemoglobin of 15.0, hematocrit of 91.2, his platelets are 269. His chemistry is as of the following; sodium 138, potassium 4.1, BUN of 26, creatinine 1.31. His troponin x3 are negative. The patient also had a chest x-ray, which did not indicate any acute abnormalities. ASSESSMENT AND PLAN: The patient is a very pleasant 53-year-old male, who presents to the hospital after his AICD firing. 1. Dizziness, most likely secondary to his automatic implantable cardioverter-defibrillator firing. Cardiology has been consulted. We will start the patient back on his home medications. 2. Hypertension. The patient's blood pressure has been severely uncontrolled. We will add additional medications or titrate his current medications. 3. Chronic kidney disease. We will continue to monitor. 4. Diabetes. We will put the patient on sliding scale insulin and check Accu-Cheks before meals and at bedtime. 5. Deep venous thrombosis prophylaxis. We will put the patient on subcu heparin versus Lovenox or SCDs. Job ID: [id number]
[2018-11-15 05:25] LABS: #Eosinphils 0.2 thou/uL (0.0-0.7); #Lymphocytes 1.8 thou/uL (1.20-3.40); #Monocytes 0.6 thou/uL (0.11-0.59); #Neutrophils 2.5 thou/uL (1.40-6.50); %Eosinophils 3.1 % (0.0-10.0); %Lymphocytes 35.1 % (21.0-51.0); %Monocytes 11.4 % (0.0-10.0); %Neutrophils 49.3 % (42.0-75.0); Hemoglobin 14.7 g/dL (14.0-18.0); Mean Corpuscular HGB CONC 31.6 g/dL (32.0-36.0); Mean Corpuscular Volume 91.7 fL (78.0-98.0); Mean Platelet Volume 7.2 fL (7.4-10.4); Platelet Count 255 thou/uL (130-400); RBC Distribution Width 12.4 % (11.5-14.5); Red Blood Cell (RBC) Count 5.07 mill/uL (4.70-6.10); White Blood Cell (WBC) Count 5.1 thou/uL (4.8-10.8)
[2018-11-15 05:43] LABS: Anion Gap 11 mmol/L (10-20); BUN (Urea Nitrogen) 17 mg/dL (8.4-25.7); Calc. Creatinine Clearance 263 mL/min (70-130); Carbon Dioxide 29 mmol/L (22-29); Chloride 102 mmol/L (98-107); Estimated GFR-MDRD 90; Glucose 109 mg/dL (70-105); Potassium 4.1 mmol/L (3.5-5.1); Sodium 138 mmol/L (136-145)
[2018-11-15] MEDS: Carvedilol 25 MG TAB PO SCH (07:59)
[2018-11-15] MEDS: Aspirin 81 mg Enteric Coated Tablet PO SCH (07:59)
[2018-11-15] MEDS: hydrALAZINE 25 MG TAB PO SCH (07:59)
[2018-11-15] MEDS: Amiodarone 200 MG TAB PO SCH (08:00)
[2018-11-15] MEDS: Sacubitril 49 MG/Valsartan 51 MG TABLET PO SCH (08:01)
[2018-11-15 08:43] VITALS: TEMP 97.6
[2018-11-15 11:44] VITALS: BP 162/78
--- NOTE | 2018-11-15 11:47 | PDOC.EVN ---
Event Note - Event Note Event Note: DC SUMMARY #[id number]
--- NOTE | 2018-11-15 21:20 | EKG ---
Test Reason : Blood Pressure : / mmHG Vent. Rate : 075 BPM Atrial Rate : 075 BPM P-R Int : 194 ms QRS Dur : 104 ms QT Int : 412 ms P-R-T Axes : 031 -18 033 degrees QTc Int : 460 ms Normal sinus rhythm Inferior infarct , age undetermined Anterolateral infarct , age undetermined Abnormal ECG Confirmed by PRANAV JARAMILLO, DR. Watson ([id number]) on 11/15/2018 9:19:48 PM Referred By: Confirmed By:DR. Walter ROCK MD
--- NOTE | 2018-11-15 21:23 | EKG ---
Test Reason : Blood Pressure : / mmHG Vent. Rate : 073 BPM Atrial Rate : 073 BPM P-R Int : 202 ms QRS Dur : 110 ms QT Int : 418 ms P-R-T Axes : 058 -22 036 degrees QTc Int : 460 ms Normal sinus rhythm Inferior infarct (cited on or before 30-AUG-2017) Anterior infarct (cited on or before 30-AUG-2017) Abnormal ECG When compared with ECG of 13-NOV-2018 23:20, (Unconfirmed) No significant change was found Confirmed by PRANAV JARAMILLO, . SBarb ([id number]) on 11/15/2018 9:23:35 PM Referred By: [facility] Confirmed By:DR. Walter ROCK MD
--- NOTE | 2018-11-16 05:20 | DIS ---
DATE OF ADMISSION: 11/14/2018 DATE OF DISCHARGE: 11/15/2018 ADMITTING DIAGNOSES: Firing of AICD, history of cardiomyopathy, hypertension, hyperlipidemia, obesity, lower extremity edema. DISCHARGE DIAGNOSES: Malfunctioning ASD, repaired. History of cardiomyopathy, hypertension, hyperlipidemia, obesity, lower extremity edema. HOSPITAL COURSE: This is a 53-year-old male, admitted to the hospital because of the ICD firing and appropriately, the patient was admitted to the Internal Medicine team, seen by EP and Cardiology as well. The patient apparently was out of his amiodarone for 2 days. Otherwise, he takes his medications pretty regularly. The patient's device was evaluated. The patient was loaded with amiodarone in the hospital and was given a prescription for 90-day supply at this point in time, so as to make it easier for compliance. The patient was cleared from Internal Medicine, Cardiology, and EP prior to discharge. The patient was to follow up with PCP, EP, and Cardiology within 1 to 2 weeks after discharge. The patient had all of his medications refilled, prescriptions given. All questions answered. Stable upon the time of discharge. DISPOSITION: Home. DIET: Low-fat, low-calorie, high-fiber diet. CONDITION: Stable. PROGNOSIS: Good. FOLLOWUP: Follow up with PCP, Cardiology, EP within 2 to 3 weeks. ACTIVITY: As tolerated with assistance as needed. Case and plan discussed with the patient at length. He understood and agreed with this plan. Job ID: [id number]
--- NOTE | 2018-11-24 15:24 | EKG ---
Test Reason : Blood Pressure : / mmHG Vent. Rate : 090 BPM Atrial Rate : 090 BPM P-R Int : 188 ms QRS Dur : 106 ms QT Int : 374 ms P-R-T Axes : 058 -20 054 degrees QTc Int : 457 ms Normal sinus rhythm Minimal voltage criteria for LVH, may be normal variant No acute changes from previous EKG on 06/22/2018 Confirmed by BETO ANGEL ([id number]), subeditor KWASI RODRIGUEZ ([id number]) on 11/24/2018 3:23:56 PM Referred By: Confirmed By:BETO ANGEL
== END 2018-11-15 12:35 | disposition home or self-care (01) ==
LOC: ERS 22:53 → ERHOLD 11-14 01:10 → 2SW 11-14 11:42
PROVIDERS: ADMIT Internal Medicine; ATTEND Internal Medicine
DX: T82.118A Breakdown (mechanical) of other cardiac electronic device, initial encounter (principal); I11.0 Hypertensive heart disease with heart failure; I50.22 Chronic systolic (congestive) heart failure; I25.10 Atherosclerotic heart disease of native coronary artery without angina pectoris; I42.8 Other cardiomyopathies; E11.9 Type 2 diabetes mellitus without complications; E78.5 Hyperlipidemia, unspecified; E66.01 Morbid (severe) obesity due to excess calories; Z68.45 Body mass index [BMI] 70 or greater, adult; G47.30 Sleep apnea, unspecified; J45.909 Unspecified asthma, uncomplicated; M10.9 Gout, unspecified; Z95.810 Presence of automatic (implantable) cardiac defibrillator; Z79.84 Long term (current) use of oral hypoglycemic drugs; Z79.82 Long term (current) use of aspirin; Z79.899 Other long term (current) drug therapy
CPT/HCPCS: 71045; 80048; 80053; 82962; 83880; 84484 ×3; 85025 ×2; 93005 ×3; 93971; 96365; 96375; 99285; G0378 ×2; 36415; 36416; 93010; J0360; J3475

== ENCOUNTER 2018-12-31 10:09 | Inpatient (IN) | payer MEDICARE, MEDICAID ==
[2018-12-31 10:36] LABS: #Eosinphils 0.2 thou/uL (0.0-0.7); #Lymphocytes 1.4 thou/uL (1.20-3.40); #Monocytes 0.4 thou/uL (0.11-0.59); #Neutrophils 2.3 thou/uL (1.40-6.50); %Basophils 1.1 % (0.0-1.0); %Eosinophils 3.7 % (0.0-10.0); %Lymphocytes 31.8 % (21.0-51.0); %Monocytes 10.1 % (0.0-10.0); %Neutrophils 53.3 % (42.0-75.0); Hemoglobin 12.3 g/dL (14.0-18.0); Mean Corpuscular HGB CONC 31.1 g/dL (32.0-36.0); Mean Corpuscular Hemoglobin 27.7 pg (27.0-31.0); Mean Corpuscular Volume 89.1 fL (78.0-98.0); Mean Platelet Volume 7.6 fL (7.4-10.4); Platelet Count 285 thou/uL (130-400); RBC Distribution Width 13.4 % (11.5-14.5); Red Blood Cell (RBC) Count 4.45 mill/uL (4.70-6.10); White Blood Cell (WBC) Count 4.3 thou/uL (4.8-10.8)
[2018-12-31 11:00] LABS: ALT (SGPT) 15 U/L (8-55); AST (SGOT) 12 U/L (5-34); Albumin 3.4 g/dL (3.5-5.0); Alkaline Phosphatase 119 U/L (40-150); Anion Gap 12 mmol/L (10-20); BUN (Urea Nitrogen) 15 mg/dL (8.4-25.7); Bilirubin, Total 1.1 mg/dL (0.2-1.2); CK (CPK) 176 U/L (30-200); Calc. Creatinine Clearance 0 mL/min (70-130); Calcium 8.5 mg/dL (7.8-10.44); Carbon Dioxide 28 mmol/L (22-29); Chloride 101 mmol/L (98-107); Estimated GFR-MDRD Greater than 90; Globulin 3.2 g/dL (2.4-3.5); Glucose 114 mg/dL (70-105); Potassium 3.9 mmol/L (3.5-5.1); Protein, Total 6.6 g/dL (6.0-8.3); Sodium 137 mmol/L (136-145)
--- NOTE | 2018-12-31 11:01 | RAD ---
Chest 2 views HISTORY: Dyspnea. COMPARISON: 12/17/2018. FINDINGS: Cardiac silhouette upper limits of normal in size. Pulmonary vasculature is slightly engorg ed and accentuated by a shallow inspiration. Mediastinum is midline with a single lead left subclavian cardiac electronic device. Mild linear atelectasis at the left base. No lobar consolidatio n, pneumothorax, or pleural fluid. IMPRESSION: Borderline pulmonary vascular congestion.
[2018-12-31] MEDS ORDERED: Nitroglycerin 2% Ointment 1 INCH/1 GM Packet ONE (12:45)
[2018-12-31] MEDS ORDERED: Aspirin Chewable 81 MG TAB ONE (12:59)
--- NOTE | 2018-12-31 14:25 | ULT ---
BILATERAL LOWER EXTREMITY VENOUS DUPLEX STUDY: Veins of both lower extremities evaluated with color Doppler, spectral analysis, and compression. INDICATION: Dyspnea. Lower extremity pain and edema. FINDINGS: Deep veins of both lower extremities show normal blood flow and compression. No evidence of DVT. IMPRESSION: No evidence of lower extremity deep vein thrombosis. POS: [facility]
[2018-12-31 15:53] LABS: Troponin I Less than 0.010 ng/mL (< 0.028)
[2018-12-31] MEDS ORDERED: Heparin 1,000 UNITS/ML VIAL ONE (16:24)
[2018-12-31] MEDS ORDERED: Nitroglycerin 0.4 MG TAB (25 Tab Bottle) PO PRN (16:49)
--- NOTE | 2018-12-31 17:29 | HP ---
PRIMARY CARE PROVIDER: Dr. Almaguer. CHIEF COMPLAINT: Shortness of breath. HISTORY OF PRESENT ILLNESS: Mr. Henning is a pleasant 53-year-old gentleman, who was seen at [facility] on 12/31/2018. He was hospitalized at this facility from 11/14 to 11/15 of this year for AICD firing. He reports that over the last couple of months he has had occasional chest discomfort. He reports that it occurs every 2 or 3 weeks, it initially started on the right side, but nowadays, it is usually on the left side. He describes it as a sensation of tightness, occasionally radiating to his jaw, accompanied by nausea or lightheadedness. He cannot recall any aggravating or relieving factors. Today morning, he woke up and got ready, then he started driving. After driving for a couple of miles, he started feeling short of breath. He also started having chest pain. He describes it as a sensation of tightness over the left side of his chest, nonradiating, 10 to 10, lasted on and off until he presented to the emergency room. He denies any current chest pain. He denies any fevers or chills. He denies any recent travel. REVIEW OF SYSTEMS: All other systems reviewed and found to be negative. PAST MEDICAL HISTORY: 1. Cardiomyopathy. 2. Coronary artery disease. 3. Diabetes mellitus. 4. Hypertension. 5. Dyslipidemia. 6. Morbid obesity. 7. Sleep apnea. 8. Asthma. SURGICAL HISTORY: AICD. ALLERGIES: NO KNOWN DRUG ALLERGIES. CURRENT MEDICATIONS: 1. Furosemide 40 mg 2 times a day. 2. ProAir HFA p.r.n. 3. Amiodarone 200 mg daily. 4. Carvedilol 50 mg 3 times a day. 5. Glipizide 10 mg daily. 6. Omeprazole 20 mg daily. 7. Hydralazine 100 mg 3 times a day. FAMILY HISTORY: Significant for heart disease. SOCIAL HISTORY: The patient denies tobacco use, alcohol use, or recreational drug use. He uses a cane to ambulate. PHYSICAL EXAMINATION: GENERAL: On examination, Mr. Henning is awake and alert, not in acute distress. He is morbidly obese. VITAL SIGNS: Blood pressure is 160/86, pulse 71, respiratory rate 18, and oxygen saturation 94% on room air. EYES: No scleral icterus, no conjunctival pallor. ENT: Moist mucosal membranes. No oropharyngeal erythema or exudates. NECK: Supple, nontender, trachea is midline. RESPIRATORY: Accessory muscles of breathing are not active. Chest wall movements are symmetric bilaterally. Lungs are clear to auscultation without wheeze, rhonchi, or crepitations. CARDIOVASCULAR: S1 and S2 are heard, regular. Peripheral pulses palpable. Good bruit. No pericardial rub. ABDOMEN: Distended, nontender, bowel sounds heard. NEUROLOGIC: Cranial nerves 2 through 12 intact, deep tendon reflexes 2+. MUSCULOSKELETAL: Power is 5/5 in all 4 extremities. SKIN: Bilateral lower extremity edema. LYMPHATIC: No cervical lymphadenopathy. PSYCHIATRIC: Normal mood, normal affect, the patient is oriented to person, place, and time. LABORATORY DATA: Mr. Juvencio Harman's labs and investigations were reviewed. I reviewed his electrocardiogram, which shows normal sinus rhythm, no ST changes to suggest an acute coronary syndrome. I reviewed his chest x-ray, which shows mild pulmonary vascular congestion. Lower extremity Dopplers did not show any evidence of deep vein thrombosis. He has leukopenia with 4300 white cells, normocytic anemia with hemoglobin of 12.3, normal platelet count. Elevated D-dimer of 2.38. Normal electrolytes. Normal creatinine. An unremarkable liver profile. BNP is mildly elevated at 119. Troponin-I is negative x2. His BNP was normal in the past. Lipase is mildly elevated at 135. ASSESSMENT AND PLAN: Mr. Henning is a pleasant 53-year-old gentleman, who was seen at [facility] on 12/31/2018. His problem list includes: 1. Chest pain: Etiology unclear at this time. The patient has both cardiac and pulmonary risk factors. He has an elevated D-dimer. Attempts were made to obtain CT angiogram or V/Q scan; however, he does not fit in the scanner set this hospital or at [facility] Emergency Room. I discussed the risks versus benefits of anticoagulation with him. The patient will be started on anticoagulation, and at the time of discharge, he will be advised to follow up through his primary care provider at a facility, where they can do a CT scan of his chest to rule out pulmonary embolism. His chest pain could also be cardiac in nature, given the fact that he has significant cardiac risk factors. We will request Cardiology Service for opinion and help with management. The patient denies having a stress test or coronary angiography in the past. We will also check 2D echocardiogram. Because of his body habitus, echocardiogram in the past has been of poor quality. Hopefully, we can get some information about the status of his right ventricle. 2. Cardiomyopathy: We will have automatic implantable cardioverter-defibrillator interrogation. We will continue beta-blake, amiodarone. 3. Diabetes mellitus: We will start Accu-Cheks and insulin sliding scale. 4. Hypertension: We will monitor vital signs and titrate antihypertensives as needed. Many thanks for allowing me to participate in your patient's care. Please feel free to contact me with any questions or concerns. LEVEL OF RISK: High. LEVEL OF COMPLEXITY: High. Job ID: [id number]
[2018-12-31 17:49] LABS: Hemoglobin 11.5 g/dL (14.0-18.0); Platelet Count 282 thou/uL (130-400)
[2018-12-31] MEDS ORDERED: HumaLOG 300 UNITS/3 ML VIAL SC PRN (17:52)
[2018-12-31] MEDS ORDERED: Dextrose 50% Abboject 50 ML SYRINGE SLOW IVP PRN (17:52)
[2018-12-31] MEDS ORDERED: Dextrose 5% in Water 1,000 ML IV PRN (17:52)
[2018-12-31 18:13] LABS: Troponin I Less than 0.010 ng/mL (< 0.028)
[2018-12-31 20:52] VITALS: BMI 65.8
[2018-12-31] MEDS: Heparin 25,000 units/D5W 500 ML IVPB SCH (21:30)
[2018-12-31] MEDS: Heparin 10,000 UNITS/ 10 ML VIAL SLOW IVP SCH (21:36)
[2018-12-31 23:21] LABS: PTT 145.3 SEC (22.9-36.1)
[2019-01-01] MEDS: Heparin 10,000 UNITS/ 10 ML VIAL SLOW IVP SCH ×2 (04:26→11:53)
[2019-01-01] MEDS: Heparin 25,000 units/D5W 500 ML IVPB SCH ×2 (08:22→17:27)
[2019-01-01] MEDS: hydrALAZINE 25 MG TAB PO SCH ×3 (09:09→20:55)
[2019-01-01] MEDS: Carvedilol 25 MG TAB PO SCH ×3 (09:27→20:54)
[2019-01-01] MEDS: Amiodarone 200 MG TAB PO SCH ×2 (09:27→20:54)
[2019-01-01] MEDS: Sacubitril 49 MG/Valsartan 51 MG TABLET PO SCH ×2 (09:28→21:12)
[2019-01-01] MEDS ORDERED: Potassium Chloride 20 MEQ TAB PO SCH (17:45)
[2019-01-01] MEDS ORDERED: Furosemide 40 MG/4 ML VIAL SLOW IVP SCH (17:45)
--- NOTE | 2019-01-01 18:19 | PRG ---
DATE OF SERVICE: 01/01/2019 SUBJECTIVE: Mr. Henning is a 53-year-old male with past medical history significant for morbid obesity with BMI of 66, dilated cardiomyopathy, status post ICD placement, with last EF 25% to 30%, and history of VT, who presented to the hospital with complaints of chest pain and shortness of breath. The patient has been admitted with presumptive pulmonary embolism. Unfortunately, the patient is not a candidate for CTA or V/Q scan secondary to body habitus. The patient has been placed on heparin drip. He does continue to complain of some chest discomfort/tightness along with shortness of breath with exertion. He denies any nausea or vomiting. He denies any diarrhea. He is lying comfortably in bed in no acute distress. OBJECTIVE: VITAL SIGNS: Blood pressure 144/85, pulse 76, O2 saturation 93% on room air. GENERAL: The patient is a morbidly obese male lying in bed, in no acute distress. HEENT: Head is atraumatic and normocephalic. Mucous membranes are moist. NECK: Supple. Obese. Trachea is midline. CV: S1 and S2. Regular rate and rhythm. No appreciable murmurs, rubs, or gallops. LUNGS: Regular respiratory rate and pattern, overall clear to auscultation bilaterally. ABDOMEN: Bowel sounds are present. Morbidly obese, nontender. EXTREMITIES: +3 edema noted on the left lower extremity, +1 on right. SKIN: Warm and dry. No apparent rashes, abrasions, or discolorations. NEUROLOGIC: Cranial nerves 2 through 12 are intact. The patient is nonfocal. LABORATORY DATA: Hemoglobin 11.5, hematocrit 36.3. Troponin negative x3. Potassium 3.9, chloride 101, sodium 137, BUN 15, creatinine 0.97. BNP 119. AST , ALT, alkaline phosphatase all within normal limits. ASSESSMENT: 1. Shortness of breath and chest pain with significantly elevated D-dimer, treating as presumptive PE at this time with heparin drip. 2. Dilated cardiomyopathy status post AICD. Last echo showed EF of 25% to 30%. 3. Morbid obesity with BMI of 66. 4. History of ventricular tachycardia, which has been well controlled with amiodarone, no VT per device check. 5. Lower extremity edema, venogram negative for DVT PLAN: At this time, we will continue heparin drip and await echo results. The hope is that we can assess some information about a potential PE based on findings in the right ventricle if possible. Unfortunately, the patient's body habitus makes it impossible to obtain a CTA or other imaging to rule out PE at this time. It is feasible that some of his symptoms may be secondary to ischemia, however, the patient has history of dilated cardiomyopathy and no history of coronary artery disease. We will go ahead and start his home maintenance dose of Lasix. Continue Coreg and Entresto, and await Cardiology recommendations. Given the patient's diagnosis of presumed PE and current treatment with heparin drip, he does meet inpatient status due to the complexity of the case. This was discussed with Dr. Mcmahon, who agrees with the above. Job ID: [id number] MTDD
[2019-01-01] MEDS: Furosemide 20 MG TAB PO SCH (20:54)
[2019-01-01] MEDS: Atorvastatin Calcium 40 MG TAB PO SCH (20:54)
[2019-01-01] MEDS: Enoxaparin Sodium 40 MG/0.4 ML SYRINGE SC SCH (20:56)
--- NOTE | 2019-01-02 01:04 | CON ---
DATE OF CONSULTATION: 01/01/2019 REASON FOR CONSULTATION: Chest pressure. HISTORY OF PRESENT ILLNESS: Mr. Henning is a 53-year-old gentleman with history of severe cardiomyopathy, morbid obesity, and mild coronary artery disease with chest pressure and shortness of breath. Mr. Henning has a relatively long history of cardiomyopathy. He did undergo evaluation previously. He underwent cardiac catheterization in 2012. The LAD was ectatic. Circumflex had stenosis and a small diameter vessel in a grooved circumflex. Right coronary is ectatic. He has severe cardiomyopathy. Over the years, the patient has been maintained on medical therapy. Also has a defibrillator implantation. The patient was admitted with recurrent intermittent chest pressure and shortness of breath on this admission. The patient has severe morbid obesity. MEDICATIONS: At home, he is on: 1. Entresto 97/103 twice a day. 2. Albuterol inhaler. 3. Hydralazine 100 mg 3 times a day. 4. Furosemide 40 mg twice a day. 5. Aspirin. 6. Atorvastatin. 7. Amiodarone 200 mg twice a day for ventricular tachycardia. REVIEW OF SYSTEMS: CONSTITUTIONAL: Positive for severe obesity. VISION: No changes. HEARING: No changes. PULMONARY: No cough or wheezing. GASTROINTESTINAL: No nausea, vomiting, or diarrhea. SKIN: No rashes. NEUROLOGIC: No unilateral weakness or numbness. PSYCHIATRIC: No unusual depression or anxiety. PHYSICAL EXAMINATION: GENERAL: This is a very pleasant gentleman, in no distress. VITAL SIGNS: Blood pressure is high at 163/93, pulse 70 and is regular. HEENT: Eyes: Sclerae nonicteric. Mouth: Mucous membranes moist. NECK: Supple. No lymphadenopathy. LUNGS: Clear. No wheezing, rales, or rhonchi. CARDIAC: Normal S1, normal S2. ABDOMEN: Severe obesity. EXTREMITIES: Warm and dry. There is moderate edema. PERTINENT LABORATORY DATA: Potassium is 3.9. BNP was 119.7. Echocardiogram was done, the last one in the computer is 2015, showing ejection fraction of 25%-30%. Probably cardiac enzymes are negative. ASSESSMENT: 1. Severe cardiomyopathy. 2. Severe morbid obesity. 3. Hypertension. 4. Cardiac enzymes are negative. PLAN: 1. Add nitrates. 2. Given dose of intravenous Lasix tonight. 3. Repeat echocardiogram. 4. Medical therapy appears appropriate at this point. Job ID: [id number]
[2019-01-02 05:59] LABS: Anion Gap 11 mmol/L (10-20); BUN (Urea Nitrogen) 10 mg/dL (8.4-25.7); Calc. Creatinine Clearance 250 mL/min (70-130); Calcium 8.4 mg/dL (7.8-10.44); Carbon Dioxide 30 mmol/L (22-29); Chloride 99 mmol/L (98-107); Estimated GFR-MDRD Greater than 90; Glucose 126 mg/dL (70-105); Potassium 3.2 mmol/L (3.5-5.1); Sodium 137 mmol/L (136-145)
[2019-01-02] MEDS: Sacubitril 49 MG/Valsartan 51 MG TABLET PO SCH ×2 (08:44→21:03)
[2019-01-02] MEDS: Enoxaparin Sodium 40 MG/0.4 ML SYRINGE SC SCH ×2 (08:45→21:04)
[2019-01-02] MEDS: Amiodarone 200 MG TAB PO SCH ×2 (08:45→21:05)
[2019-01-02] MEDS: Furosemide 20 MG TAB PO SCH ×2 (08:45→21:05)
[2019-01-02] MEDS: Carvedilol 25 MG TAB PO SCH ×3 (08:45→21:06)
[2019-01-02] MEDS: hydrALAZINE 25 MG TAB PO SCH ×3 (08:45→21:05)
[2019-01-02] MEDS ORDERED: Potassium Chloride 20 MEQ TAB PO SCH ×2 (12:45→20:00)
[2019-01-02] MEDS ORDERED: Furosemide 100 MG/10 ML VIAL SLOW IVP SCH (12:45)
[2019-01-02] MEDS ORDERED: Magnesium Sulfate 3 GM in Sodium Chloride 0.9% 100 ML IVPB SCH (13:15)
--- NOTE | 2019-01-02 13:28 | PRG ---
DATE OF SERVICE: 01/02/2019 SUBJECTIVE: Mr. Henning is doing well today, but had a headache. No chest pain or shortness of breath. No chest pressure. The patient put out 5 L of urine last night. OBJECTIVE: VITAL SIGNS: Blood pressure 123/59, pulse 70. LUNGS: Clear. CARDIAC: Normal S1, normal S2. ABDOMEN: Obese, nontender. EXTREMITIES: Moderate edema. The OptiVol revealed that he is volume overloaded. ASSESSMENT: Congestive heart failure, systolic, acute on chronic, volume overloaded. PLAN: 1. Continue diuretic. 2. Avoid spironolactone, had worsening of his renal function in the past with that. 3. Possibly home tomorrow. 4. Continue to replete potassium. His potassium is low. 5. Give him magnesium as he is having a very major diuresis. Job ID: [id number]
--- NOTE | 2019-01-02 15:08 | PRG ---
DATE OF SERVICE: 01/02/2019 SUBJECTIVE: The patient is seen and examined at bedside. His is present in the room during my visit. He has some concerns about some spots on his legs. OBJECTIVE: VITAL SIGNS: Blood pressure is 123/59, pulse is 72, temperature is 96.2, respiratory rate is 18, O2 saturation is 97% on room air. HEENT: His head is atraumatic and normocephalic. He is very big. His BMI is 65.9, which is 446 pounds. Eyes are PERRLA. Sclerae are nonicteric. Oral mucosa is moist. NECK: Obese. LUNGS: Breath sounds are somewhat diminished at both bases with few crackles bilaterally. HEART: S1 and S2 are normal. No S3. No S4. Somewhat distant. ABDOMEN: Obese. Nontender to palpation. EXTREMITIES: 2+ peripheral edema, similar bilaterally. NEUROLOGIC: He is alert and oriented x4. There are no any motor or sensory deficits present. Cranial nerves are intact. LABORATORY DATA: Showed sodium of 137, potassium 3.2, chloride 99, CO2 of 30, BUN 10, creatinine 1.0. Glycemia is ranging from 94 to 125. Calcium 8.4. IMPRESSION: 1. Cardiomyopathy with left ventricular ejection fraction of 25% to 30%. 2. Severe morbid obesity. 3. Hypertension. 4. Hypokalemia. 5. Diabetes mellitus, type 2. DISCUSSION: His Lasix dose was decreased to 20 mg slow IV push daily since he had more than 5000 mL output in the last 24 hours. He will continue on the rest of the regimen, which includes carvedilol, Entresto, isosorbide, and atorvastatin along with amiodarone, and most likely, he will be discharged home in the next 24 to 48 hours, and we will continue Accu-Cheks and sliding scale. Job ID: [id number]
[2019-01-02 17:32] LABS: Hemoglobin 11.7 g/dL (14.0-18.0); Platelet Count 280 thou/uL (130-400)
[2019-01-02] MEDS ORDERED: Furosemide 20 MG/2 ML VIAL SLOW IVP SCH (20:00)
[2019-01-02] MEDS: Atorvastatin Calcium 40 MG TAB PO SCH (21:04)
[2019-01-03 05:46] LABS: Anion Gap 12 mmol/L (10-20); BUN (Urea Nitrogen) 10 mg/dL (8.4-25.7); Calc. Creatinine Clearance 236 mL/min (70-130); Calcium 8.5 mg/dL (7.8-10.44); Carbon Dioxide 29 mmol/L (22-29); Chloride 100 mmol/L (98-107); Estimated GFR-MDRD 89; Glucose 115 mg/dL (70-105); Potassium 3.8 mmol/L (3.5-5.1); Sodium 137 mmol/L (136-145)
[2019-01-03] MEDS ORDERED: Potassium Chloride 20 MEQ TAB PO SCH ×2 (08:00→11:00)
[2019-01-03] MEDS ORDERED: Sodium Chloride 0.9% 10 ML ONE (08:08)
[2019-01-03] MEDS ORDERED: Aspirin 81 mg Enteric Coated Tablet PO SCH (09:00)
[2019-01-03] MEDS ORDERED: Amiodarone 200 MG TAB PO SCH (09:00)
[2019-01-03] MEDS: Carvedilol 25 MG TAB PO SCH (09:48)
[2019-01-03] MEDS: Enoxaparin Sodium 40 MG/0.4 ML SYRINGE SC SCH (09:48)
[2019-01-03] MEDS: hydrALAZINE 25 MG TAB PO SCH (09:48)
[2019-01-03] MEDS: Sacubitril 49 MG/Valsartan 51 MG TABLET PO SCH (09:49)
--- NOTE | 2019-01-03 11:35 | PRG ---
DATE OF SERVICE: 01/03/2019 SUBJECTIVE: Mr. Henning is feeling well today. No complaints. OBJECTIVE: VITAL SIGNS: Blood pressure 122/60, pulse 70. LUNGS: Clear. CARDIAC: Normal S1 and normal S2. ABDOMEN: Soft and nontender. EXTREMITIES: No edema. ABDOMEN: Extreme obesity. ASSESSMENT: 1. Systolic heart failure, acute on chronic, improved. 2. Morbid obesity. PLAN: 1. He is on hydralazine 100 mg 3 times a day. 2. Furosemide changed to 80 mg orally twice a day. 3. Carvedilol 25 mg 3 times a day. 4. Atorvastatin 80 mg a day. 5. Amiodarone reduced to 200 mg once a day. 6. Potassium 20 mEq a day. 7. Entresto, resume home dose, twice a day. Job ID: [id number] MTDD
[2019-01-03 12:13] VITALS: BP 138/78; TEMP 97.8
--- NOTE | 2019-01-04 03:59 | DIS ---
DATE OF ADMISSION: 01/01/2019 DATE OF DISCHARGE: 01/03/2019 DIAGNOSES AT THE TIME OF DISCHARGE: 1. Cardiomyopathy with left ventricular ejection fraction of 25% to 30%. 2. Severe morbid obesity. 3. Hypertension. 4. Hypokalemia. 5. Diabetes mellitus type 2. 6. Coronary artery disease. 7. Sleep apnea. 8. Asthma. UTILITY AGENT: Dr. Galan, Cardiology Service. HOSPITAL COURSE: The patient was a 53-year-old male, who was admitted to the hospital because of shortness of breath along with some sensation of chest tightness, occasionally radiating to his jaw, accompanied by nausea or lightheadedness, presented to the emergency room for further evaluation of his chest pain. He denied any fever or chills. He denied any recent travels. At the time of emergency room evaluation, his white count was 4300, hemoglobin was 12.3, normal platelet count. D-dimers were elevated at 238. Electrolytes were within normal limits. Creatinine was normal. BNP was slightly elevated at 119. Troponin I was negative x2. BNP was normal in the past and lipase was mildly elevated at 135. He had electrocardiogram done which showed normal sinus rhythm, no ST changes to suggest an acute coronary syndrome. The chest x-ray showed mild pulmonary vascular congestion. Also, he had lower extremity Doppler to rule out DVT and this was negative. The patient got admitted to the hospital since his D-dimers were elevated. Attempts were made to obtain CT angiogram or V/Q scan. However, he does not fit in the scanner set this hospital or at [facility]. His AICD was interrogated and it did not show any cardiac arrhythmia. He had been changed to IV Lasix and diuresed during the whole hospitalization. Echocardiogram was done which showed low LVEF at 25% to 30% with mild tricuspid regurgitation, and trace of mitral regurgitation. His left atrium was moderately to severely dilated and left ventricular size was moderately increased. The patient was started on nitrates isosorbide mononitrate specifically 60 mg once a day. He diuresed a lot and he improved significantly to the point that we will consider to discharge him home. His administrative office specialist Dr. Galan recommended not to use spironolactone since he had some hyperkalemia issues in the past related to spironolactone. Today, he is feeling significantly better. His blood pressure is 138/78, pulse is 69, temperature 97.8, respiratory rate is 18, O2 saturation 94% on room air. He is discharged home on a low-salt diet. ACTIVITIES: As tolerated. MEDICATIONS: At the time of discharge: 1. Glipizide 10 mg once a day. 2. Albuterol 2 puffs q.4 hours p.r.n. 3. Hydralazine 100 mg 3 times a day. 4. Atorvastatin 80 mg at bedtime. 5. Aspirin 81 mg once a day. 6. Entresto 75/103 one tab twice a day. 7. Combination of linagliptin and metformin two each day. 8. Cholecalciferol 5000 units once a day. 9. Carvedilol 25 mg 3 times a day. 10. Omeprazole 20 mg daily. 11. Potassium chloride 20 mEq once a day. 12. Isosorbide mononitrate 60 mg once a day. 13. Furosemide 80 mg twice a day. 14. Amiodarone 200 mg once a day. FOLLOWUP: He is going to follow up with Dr. Galan's nurse practitioner in 1 week and with primary care physician in 2 weeks. He is discharged in good condition. TIME SPENT: Discharge time is less than 30 minutes. Job ID: [id number]
[2019-01-04] MEDS ORDERED: Potassium Chloride 20 MEQ TAB PO SCH (08:00)
[2019-01-04] MEDS ORDERED: Furosemide 80 MG TAB PO SCH (09:00)
== END 2019-01-03 13:49 | disposition home or self-care (01) | DRG 175 ==
LOC: ERS 10:09 → 2NO 16:37 → OBSVTOIN 01-01 17:04
PROVIDERS: ADMIT Internal Medicine; ATTEND Internal Medicine
DX: I26.99 Other pulmonary embolism without acute cor pulmonale (principal); I50.23 Acute on chronic systolic (congestive) heart failure; Z68.44 Body mass index [BMI] 60.0-69.9, adult; I42.9 Cardiomyopathy, unspecified; I11.0 Hypertensive heart disease with heart failure; I25.10 Atherosclerotic heart disease of native coronary artery without angina pectoris; E11.9 Type 2 diabetes mellitus without complications; E78.5 Hyperlipidemia, unspecified; E66.01 Morbid (severe) obesity due to excess calories; G47.30 Sleep apnea, unspecified; E87.6 Hypokalemia; J45.909 Unspecified asthma, uncomplicated; Z95.810 Presence of automatic (implantable) cardiac defibrillator; Z79.899 Other long term (current) drug therapy; Z79.84 Long term (current) use of oral hypoglycemic drugs; Z79.82 Long term (current) use of aspirin
CPT/HCPCS: 36415; 36416; 71046; 80048; 80053; 82550; 83690; 83880; 84484; 85014; 85018; 85025; 85049; 85379; 85730; 90471; 90732; 93005; 93306; 93798; 93970; 94760; 96374; G0009; J1644; J1650; J1940; J3475; J3490

== ENCOUNTER 2019-05-22 03:45 | Observation (INO) | payer MEDICARE, MEDICAID ==
[2019-05-22] MEDS ORDERED: Nitroglycerin 0.4 MG TAB 1 EACH ONE (04:03)
[2019-05-22] MEDS ORDERED: Nitroglycerin 2% Ointment 1 INCH/1 GM Packet ONE (04:03)
[2019-05-22 06:16] LABS: Troponin I 0.015 ng/mL (< 0.028)
[2019-05-22] MEDS ORDERED: cloNIDine 0.1 MG TAB ONE (06:32)
[2019-05-22] MEDS ORDERED: Bisacodyl 10 MG SUPP PR PRN (08:04)
[2019-05-22] MEDS ORDERED: Acetaminophen 325 MG TAB PO PRN (08:04)
[2019-05-22] MEDS ORDERED: Metoclopramide HCl 10 MG/2 ML VIAL IVP PRN (08:04)
[2019-05-22] MEDS ORDERED: Cepastat Lozenges 1 LOZ PO PRN (08:04)
[2019-05-22] MEDS ORDERED: Diabetic Tussin 200 MG/10 ML UDCUP PO PRN (08:04)
[2019-05-22] MEDS ORDERED: Senokot S 8.6-50 MG TAB PO PRN (08:04)
[2019-05-22] MEDS ORDERED: Sodium Chloride 0.65% Nasal 44 ML BOT EA NARE PRN (08:04)
[2019-05-22] MEDS ORDERED: Nitroglycerin 0.4 MG TAB (25 Tab Bottle) SL PRN (08:04)
[2019-05-22] MEDS ORDERED: Loratadine 10 MG TAB PO PRN (08:04)
[2019-05-22] MEDS ORDERED: Calcium Carbonate 500 MG ChewTAB PO PRN (08:04)
[2019-05-22] MEDS ORDERED: HYDROcodone/Acetaminophen 5/325 mg Tablet PO PRN (08:04)
[2019-05-22] MEDS ORDERED: Zolpidem Tartrate 5 MG TAB PO PRN (08:04)
[2019-05-22] MEDS ORDERED: hydrALAZINE 20 MG/ML VIAL SLOW IVP PRN (08:04)
[2019-05-22] MEDS ORDERED: Loperamide HCl 2 MG CAP PO PRN (08:04)
[2019-05-22 08:32] VITALS: BMI 60.9
[2019-05-22 09:17] LABS: Troponin I 0.012 ng/mL (< 0.028)
[2019-05-22] MEDS: Famotidine 20 MG TAB PO SCH ×2 (10:00→22:10)
[2019-05-22] MEDS ORDERED: Sacubitril 49 MG/Valsartan 51 MG TABLET PO SCH ×2 (10:45→11:00)
[2019-05-22] MEDS ORDERED: hydrALAZINE 25 MG TAB PO SCH ×2 (10:45→11:00)
--- NOTE | 2019-05-22 12:04 | CON ---
DATE OF CONSULTATION: HISTORY OF PRESENT ILLNESS: The patient is an unfortunate 54-year-old gentleman with a history of severe cardiomyopathy, who presented for evaluation of palpitations. The patient has a long history of cardiomyopathy. He underwent a cardiac catheterization which revealed to have ectopic coronary vessels. He also has a history of ventricular tachycardia. The patient has also had placement of automatic implantable cardiac defibrillator. The patient was admitted earlier this year after his AICD fired. The patient was in his usual state of health when he felt palpitations. He states he felt his heart racing for about a minute and noted some midsternal chest discomfort. The patient denies having any present chest discomfort. The patient was noted to be markedly hypertensive. The patient reports that he has been compliant with taking all his medications. He did increase his sodium consumption recently and had been under a great deal of stress. PAST MEDICAL HISTORY: 1. Cardiomyopathy. 2. Coronary artery disease. 3. Ventricular tachycardia. 4. Hypertension. 5. Sleep apnea. 6. Morbid obesity. 7. Asthma. 8. Diabetes mellitus. 9. Dyslipidemia. PAST SURGICAL HISTORY: None. SOCIAL HISTORY: Nonsmoker. ALLERGIES: NO KNOWN DRUG ALLERGIES. FAMILY HISTORY: Positive family history of heart disease. MEDICATIONS: 1. Glipizide 10 b.i.d. 2. Entresto 97/103 daily. 3. Coreg 25 t.i.d. 4. Amiodarone 200 t.i.d. 5. Prilosec 20 daily. 6. Lasix 80 mg p.o. b.i.d. 7. Lipitor 80 at bedtime. PHYSICAL EXAMINATION: GENERAL: Obese gentleman, in no acute distress. VITAL SIGNS: Blood pressure is 162/102. NECK: No jugular venous distention. LUNGS: Clear to auscultation. HEART: Regular rate and rhythm. Normal S1 and S2. ABDOMEN: Distended. EXTREMITIES: Showed severe bilateral edema. VASCULAR: Radial pulses 2+. LABORATORY RESULTS: White blood cell count is 5.8, hemoglobin 14.3, hematocrit 44.6, platelets 234. Sodium is 141, potassium 3.5, chloride 100, bicarbonate 27 , BUN 19, creatinine 1.35, glucose 126. BNP was 29. Troponin 0.015. IMAGING STUDIES: His EKG revealed him to have normal sinus rhythm with a left bundle-branch block. IMPRESSION AND PLAN: 1. Hypertensive crisis. 2. Chest pain. 3. History of cardiomyopathy. 4. History of automatic implantable cardioverter-defibrillator. 5. Diabetes mellitus. 6. Dyslipidemia. This gentleman presents with a hypertensive crisis. His initial blood pressure was over 230. The patient has been highly advised that he must be more compliant with a low-sodium diet. From a cardiac standpoint, I would recommend increasing his Coreg to the recommended dose of 50 mg twice daily. We will treat the patient with IV Lasix. The patient will continue on Entresto. Further recommendations to follow. Job ID: [id number] MTDD
--- NOTE | 2019-05-22 12:14 | HP ---
PRIMARY CARE PHYSICIAN: Dr. Florence Almaguer. REASON FOR ADMISSION: Palpitation and chest pressure. HISTORY OF PRESENT ILLNESS: A 54-year-old male, who has underlying history of cardiomyopathy with EF 25% to 30%, who presented to emergency room last night with complaint of palpitation as well as chest pressure, which was started around 11:30 p.m. The patient was at home and all of suddenly, his symptom started with palpitation. He was feeling his heart was racing and he was feeling chest pressure. He did not have any associated dizziness or shortness of breath. The patient also denies any AICD shock. This was intermittently happening and that is why he came to emergency room for evaluation. In the emergency room, the patient had routine evaluation with cardiac enzymes negative. His CBC and BMP were unremarkable. Initially, he went to [facility], where he was given metoprolol 5 mg IV push, aspirin 325 mg, and nitroglycerin and subsequently he was transferred to our emergency room. He had a chest x-ray, which showed finding suggestive of mild CHF. The patient reports that he was taking amiodarone 200 mg twice daily and lately that dose was reduced to 100 mg daily. He takes all his medication as prescribed without any miss. When he presented to [facility], at that time, his blood pressure was 224/134 and pulse was 70. When he presented to our emergency room, his blood pressure improved to 140/73. When I saw this morning, at that time, the patient was feeling normal, but he reported that few minutes ago, he had a palpitation episode. REVIEW OF SYSTEMS: CONSTITUTIONAL: Negative for weight loss or gain, ability to conduct usual activities. SKIN: Negative for rash, itching. EYES: Negative for double vision, pain. ENT/MOUTH: Negative for nose bleeding, neck stiffness, pain, tenderness. CARDIOVASCULAR: Negative for palpitations, dyspnea on exertion, orthopnea. RESPIRATORY: Negative for shortness of breath, wheezing, cough, hemoptysis, fever or night sweats. GASTROINTESTINAL: Negative for poor appetite, abdominal pain, heartburn, nausea , vomiting, constipation, or diarrhea. GENITOURINARY: Negative for urgency, frequency, dysuria, nocturia. MUSCULOSKELETAL: Negative for pain, swelling. NEUROLOGIC/PSYCHIATRIC: Negative for anxiety, depression. ALLERGY/IMMUNOLOGIC: Negative for skin rash, bleeding tendency. Please see my HPI for pertinent positives and negatives. All other review of systems reviewed and negative except as mentioned in HPI. PAST MEDICAL HISTORY: Morbid obesity; obstructive sleep apnea, not on CPAP because the patient is not tolerating any CPAP machine; cardiomyopathy with EF 25% to 30 %; history of deep vein thrombosis and he finished treatment with anticoagulation therapy; diabetes type 2; hypertension; dyslipidemia; coronary artery disease; gastroesophageal reflux disease; chronic kidney disease stage 3; asthma. PAST SURGICAL HISTORY: AICD placement. PAST PSYCHIATRIC HISTORY: Reviewed and negative. SOCIAL HISTORY: The patient is . He lives at home with . The patient denies any smoking, alcohol, or other illicit drug abuse. He ambulates with a cane. FAMILY HISTORY: No family history of stroke, but heart disease runs among several family members. CURRENT HOME MEDICATIONS: 1. Vitamin D3 10,000 units p.o. daily. 2. Glucotrol XL 10 mg b.i.d. 3. Hydralazine 100 mg t.i.d. 4. Omeprazole 20 mg daily. 5. Entresto 1 tablet twice daily. 6. Amiodarone 200 mg daily. 7. Lipitor 80 mg nightly. 8. Coreg 25 mg t.i.d. 9. Lasix 80 mg b.i.d. ALLERGY: NKDA PHYSICAL EXAMINATION: VITAL SIGNS: Currently, blood pressure 140/73, pulse 73, respiratory rate 18, temperature 98.2, and saturation 94% on room air. Weight 152 kg. GENERAL: The patient is currently alert and awake, in no obvious acute distress. HEENT: Head; normocephalic and atraumatic. Eyes; pupils are round and reactive to light. Extraocular muscle intact. ENT; oropharynx within normal limits. Moist mucous membranes. No oral lesion. No pharyngeal erythema. No exudate. NECK: Supple. No JVD. No thyromegaly. No carotid bruit. No jugular venous distention. LUNGS: Clear to auscultation without any rhonchi or rales, though morbid obesity limiting examination. CARDIAC: S1 and S2, regular without any significant murmur. No gallop. No rub. ABDOMEN: Soft. Bowel sounds are present. Nontender. Nondistended. No organomegaly. No mass. No suprapubic tenderness. Morbid obesity. EXTREMITIES: Chronic venous insufficiency with trace edema noted. Good distal pulsation. NEUROLOGIC: Nonfocal examination. PSYCHIATRIC: Normal affect. SIGNIFICANT LABORATORY DATA: CBC; WBC 5.8, hemoglobin 14.3, platelets are 234, and INR 1.0. BMP; sodium 141, potassium 3.5, chloride 100, carbon dioxide 27, BUN 19, creatinine 1.35, glucose 126, and calcium 9.2. LFT; AST 20, ALT 20, alkaline phosphatase 63, albumin 3.9. Troponin negative x3. BNP 29.2. EKG showing normal sinus rhythm, LVH. ASSESSMENT/PLAN: 1. Chest pressure and palpitation, recurrent; etiology uncertain but his chest pressure most likely related with hypertensive urgency; etiology of hypertensive urgency is unclear and etiology of palpitation is unclear. We will do AICD interrogation to rule out any nonsustained ventricular tachycardia and we will consult Cardiology. Acute coronary syndrome has been ruled out. We will monitor on telemetry floor for 24 hours. Further investigation will defer to Cardiology. 2. Chronic systolic heart failure with nonischemic cardiomyopathy with AICD in place. At this point, we will continue the patient's home medication with Entresto 97/103 one tab twice daily; Coreg increased to 50 mg twice daily; amiodarone 200 mg daily, and Lasix 80 mg b.i.d. The patient is euvolemic and also continue hydralazine 100 mg t.i.d. If needed, we will add Imdur on his regimen. 3. Diabetes type 2. Continue Glucotrol 10 mg b.i.d. 4. Insulin as per sliding scale per protocol. Diabetic diet will be given. 5. Dyslipidemia. Continue Lipitor 80 mg p.o. nightly. 6. Gastroesophageal reflux disease. We will continue Pepcid 20 mg p.o. b.i.d. 7. Coronary artery disease. Continue aspirin 325 mg p.o. daily along with statin therapy and beta-blake therapy. 8. Morbid obesity with BMI of 60. Dietary education given. Weight loss education given. Healthy lifestyle measure discussed with the patient. 9. Obstructive sleep apnea. The patient is not tolerating CPAP machine. 10. Code status: The patient is full code. The patient's is surrogate decision maker. DISPOSITION PLAN: Based on clinical course. Job ID: [id number] [facility]
[2019-05-22] MEDS: hydrALAZINE 25 MG TAB PO SCH ×2 (16:26→22:09)
[2019-05-22] MEDS: Carvedilol 25 MG TAB PO SCH (16:26)
[2019-05-22] MEDS ORDERED: Atorvastatin Calcium 40 MG TAB PO SCH (21:00)
[2019-05-22] MEDS: Sacubitril 49 MG/Valsartan 51 MG TABLET PO SCH (22:09)
[2019-05-23 05:36] LABS: #Eosinphils 0.1 thou/uL (0.0-0.7); #Lymphocytes 1.7 thou/uL (1.20-3.40); #Monocytes 0.5 thou/uL (0.11-0.59); #Neutrophils 2.5 thou/uL (1.40-6.50); %Eosinophils 2.2 % (0.0-10.0); %Lymphocytes 35.8 % (21.0-51.0); %Neutrophils 51.1 % (42.0-75.0); Mean Corpuscular Hemoglobin 29.1 pg (27.0-31.0); Mean Corpuscular Volume 88.1 fL (78.0-98.0); Mean Platelet Volume 7.8 fL (7.4-10.4); Platelet Count 219 thou/uL (130-400); RBC Distribution Width 14.3 % (11.5-14.5); White Blood Cell (WBC) Count 4.8 thou/uL (4.8-10.8)
[2019-05-23 05:58] LABS: Anion Gap 11 mmol/L (10-20); BUN (Urea Nitrogen) 22 mg/dL (8.4-25.7); Calc. Creatinine Clearance 173 mL/min (70-130); Calcium 8.8 mg/dL (7.8-10.44); Carbon Dioxide 27 mmol/L (22-29); Chloride 101 mmol/L (98-107); Estimated GFR-MDRD 69; Glucose 102 mg/dL (70-105); Potassium 3.1 mmol/L (3.5-5.1); Sodium 136 mmol/L (136-145)
[2019-05-23] MEDS ORDERED: Potassium Chloride 20 MEQ TAB PO SCH ×2 (07:45→12:30)
[2019-05-23] MEDS: hydrALAZINE 25 MG TAB PO SCH ×2 (08:56→13:57)
[2019-05-23] MEDS: Famotidine 20 MG TAB PO SCH (08:56)
[2019-05-23] MEDS: Carvedilol 25 MG TAB PO SCH (08:57)
[2019-05-23] MEDS: Sacubitril 49 MG/Valsartan 51 MG TABLET PO SCH (08:57)
[2019-05-23] MEDS ORDERED: Aspirin 325 mg Enteric Coated Tablet PO SCH (09:00)
[2019-05-23] MEDS ORDERED: Amiodarone 200 MG TAB PO SCH (09:00)
--- NOTE | 2019-05-23 11:53 | PDOC.HOSPP ---
- Subjective Encounter Date: 05/23/19 Encounter Time: 07:30 Subjective: Patient seen and examined. No new complaints. No overnight events - Objective Vital Signs & Weight: Vital Signs (12 hours) Temp Pulse Resp BP Pulse Ox 05/23/19 08:56 79 05/23/19 07:54 98.2 F 79 20 155/92 H 93 L 05/23/19 04:00 98.2 F 79 18 113/60 97 05/23/19 01:11 83 17 111/58 L 96 Weight Weight 412 lb 9.6 oz I&O: 05/22/19 05/23/19 05/24/19 06:59 06:59 06:59 Intake Total 1120 Output Total 500 Balance 620 Result Diagrams: 05/23/19 05:03 05/23/19 05:03 Additional Labs: Accuchecks 05/22/19 22:11 POC Glucose 111 H EKG Reviewed by me: Yes Hospitalist ROS - Review of Systems Eyes: denies: pain, vision change, conjunctivae inflammation, eyelid inflammation, redness, other ENT: denies: ear pain, ear discharge, nose pain, nose discharge, nose congestion , mouth pain, mouth swelling, throat pain, throat swelling, other Respiratory: denies: cough, dry, shortness of breath, hemoptysis, SOB with excertion, pleuritic pain, sputum, wheezing, other Cardiovascular: denies: chest pain, palpitations, orthopnea, paroxysmal noc. dyspnea, edema, light headedness, other Gastrointestinal: denies: nausea, vomiting, abdominal pain, diarrhea, constipation, melena, hematochezia, other Genitourinary: denies: dysuria, frequency, incontinence, hematuria, retention, other Musculoskeletal: denies: neck pain, shoulder pain, arm pain, back pain, hand pain, leg pain, foot pain, other Skin: denies: rash, lesions, eliezer, bruising, other - Medication Medications: Active Medications Generic Name Dose Route Start Last Admin Trade Name Freq PRN Reason Stop Dose Admin Amiodarone HCl 200 mg 05/23/19 09:00 05/23/19 08:57 Cordarone PO 200 mg DAILY ERIC Administration Aspirin 325 mg 05/23/19 09:00 05/23/19 08:57 Ecotrin PO 325 mg DAILY ERIC Administration Atorvastatin Calcium 80 mg 05/22/19 21:00 05/22/19 22:09 Lipitor PO 80 mg HS ERIC Administration Carvedilol 50 mg 05/22/19 17:00 05/23/19 08:57 Coreg PO 50 mg BID-WM ERIC Administration Famotidine 20 mg 05/22/19 09:00 05/23/19 08:56 Pepcid PO 20 mg BID ERIC Administration Hydralazine HCl 100 mg 05/22/19 15:00 05/23/19 08:56 Apresoline PO 100 mg TID ERIC Administration Sacubitril/Valsartan 2 tab 05/22/19 21:00 05/23/19 08:57 Entresto 49 Mg-51 Mg Tablet PO 2 tab BID ERIC Administration Sodium Chloride 10 ml 05/22/19 09:00 05/23/19 08:58 Flush - Normal Saline IVF 10 ml Q12HR ERIC Administration - Exam General Appearance: NAD, awake alert Eye: PERRL, anicteric sclera ENT: normocephalic atraumatic, no oropharyngeal lesions Neck: supple, symmetric, no JVD, no thyromegaly Heart: RRR, no murmur, no gallops, no rubs, normal peripheral pulses Respiratory: CTAB, no wheezes, no rales, no ronchi, normal chest expansion Gastrointestinal: soft, non-tender, non-distended, normal bowel sounds Extremities: no cyanosis, no clubbing, no edema Skin: normal turgor, no lesions Neurological: cranial nerve grossly intact, no focal deficits Musculoskeletal: normal tone, normal strength Psychiatric: normal affect, normal behavior, A&O x 3 Hosp A/P (1) Chest pain Code(s): R07.9 - CHEST PAIN, UNSPECIFIED Status: Acute Qualifiers: Chest pain type: other chest pain Qualified Code(s): R07.89 - Other chest pain; R07.8 - Other chest pain (2) Morbid obesity with BMI of 60.0-69.9, adult Code(s): E66.01 - MORBID (SEVERE) OBESITY DUE TO EXCESS CALORIES; Z68.44 - BODY MASS INDEX (BMI) 60.0-69.9, ADULT Status: Chronic (3) Chronic systolic CHF, NYHA class 2 and ESTRELLA/AHA stage C Code(s): I50.22 - CHRONIC SYSTOLIC (CONGESTIVE) HEART FAILURE Status: Chronic (4) Asthma Code(s): J45.909 - UNSPECIFIED ASTHMA, UNCOMPLICATED Status: Chronic Qualifiers: Asthma severity: mild Asthma persistence: intermittent Asthma complication type: uncomplicated Qualified Code(s): J45.20 - Mild intermittent asthma, uncomplicated (5) GERD (gastroesophageal reflux disease) Code(s): K21.9 - GASTRO-ESOPHAGEAL REFLUX DISEASE WITHOUT ESOPHAGITIS Status: Chronic Qualifiers: Esophagitis presence: without esophagitis Qualified Code(s): K21.9 - Gastro -esophageal reflux disease without esophagitis (6) Non-sustained ventricular tachycardia Code(s): I47.2 - VENTRICULAR TACHYCARDIA Status: Chronic (7) Hypertension Code(s): I10 - ESSENTIAL (PRIMARY) HYPERTENSION Status: Chronic Qualifiers: Hypertension type: essential hypertension (8) Diabetes type 2, controlled Code(s): E11.9 - TYPE 2 DIABETES MELLITUS WITHOUT COMPLICATIONS Status: Chronic Qualifiers: Diabetes mellitus snf insulin use: with terminal gauger use Chronic kidney disease stage: stage 2 (mild) (9) Hypokalemia Code(s): E87.6 - HYPOKALEMIA Status: Acute - Plan old records reviewed/req possible discharge today medication reviewed as above, symptomatic treatment
[2019-05-23 12:14] VITALS: BP 132/74; TEMP 97.7
--- NOTE | 2019-05-23 14:58 | DIS ---
DATE OF ADMISSION: 05/22/2019 DATE OF DISCHARGE: 05/23/2019 PRIMARY CARE PHYSICIAN: Dr. Florence Almaguer. DISCHARGE DISPOSITION: Home. PRIMARY DISCHARGE DIAGNOSES: 1. Hypertensive urgency, resolved. 2. Chest pain due to uncontrolled hypertension. 3. Palpitation, ruled out arrhythmia. SECONDARY DISCHARGE DIAGNOSES: 1. Chronic systolic congestive heart failure, [place] [employer], class II, ACC stage C. 2. Diabetes type 2. 3. Morbid obesity with BMI of 60. 4. Obstructive sleep apnea. 5. Nonsustained ventricular tachycardia. 6. Gastroesophageal reflux disease. 7. Hypertension. PRIMARY PROCEDURE/OPERATION: None. RADIOLOGICAL INVESTIGATION: Chest x-ray, unremarkable. SIGNIFICANT LABORATORY DATA: WBC 4.8, hemoglobin 14.0, and platelets are 219. Sodium 136, potassium 3.1, BUN 22, creatinine 1.32, calcium 8.8, and magnesium 1.7. Troponin, negative x2. DISCHARGE MEDICATIONS: 1. Nitroglycerin 0.4 mg sublingual p.r.n. for chest pain. 2. Vitamin D3 10,000 units p.o. daily. 3. Glucotrol XL 10 mg p.o. b.i.d. 4. Hydralazine 100 mg t.i.d. 5. Omeprazole 20 mg daily. 6. Entresto 97/103 one tablet p.o. b.i.d. 7. Amiodarone 200 mg daily. 8. Lipitor 80 mg p.o. nightly. 9. Coreg 50 mg b.i.d. 10. Lasix 80 mg b.i.d. 11. Imdur 60 mg p.o. daily. 12. Potassium chloride 20 mEq p.o. daily. CONTRAINDICATION: None. CODE STATUS: Full code. 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 TEST RESULTS PENDING ON DISCHARGE: None. ALLERGIES: NO KNOWN DRUG ALLERGY. DISCHARGE PLAN: Posthospital, the patient will follow up with primary care physician in one week. HOSPITAL COURSE: A 54-year-old male, who was admitted by me. Please see my HPI for further details. When he presented to emergency room, his blood pressure was very, very high. On admission, he presented to ER with complaint of chest pressure and palpitation. His EKG was not showing any arrhythmia. The patient's blood pressure was very high, which was treated in the emergency room and the blood pressure was improved and subsequently, he was admitted to telemetry floor. His serial cardiac enzymes were negative. We interrogated his defibrillator while in hospital, which was unremarkable for any arrhythmia. Cardiology was consulted and they increased the Coreg to 50 mg b.i.d. We added Imdur 60 mg p.o. daily as well as potassium chloride on discharge. While in the hospital, he had hypokalemia, which was replaced. Telemetry remained unremarkable. The patient was asymptomatic. His blood pressure is also well controlled. Cardiology cleared him for discharge today. I have seen and examined the patient at bedside today. Please see my progress note from today for further detail. Job ID: [id number]
--- NOTE | 2019-05-25 23:50 | EKG ---
Test Reason : Blood Pressure : / mmHG Vent. Rate : 077 BPM Atrial Rate : 077 BPM P-R Int : 200 ms QRS Dur : 136 ms QT Int : 434 ms P-R-T Axes : 043 -38 048 degrees QTc Int : 491 ms Normal sinus rhythm Left axis deviation Left ventricular hypertrophy with QRS widening Abnormal ECG Similar to 31-DEC-2018 Confirmed by ADEBAYO MENON DO ([id number]), book editor OMAR CARR ([id number] on 05/25/2019 11:49:57 PM Referred By: Confirmed By:ADEBAYO MENON DO
== END 2019-05-23 15:37 | disposition home or self-care (01) ==
LOC: ERS 03:45 → ERHOLD 04:37 → 2SW 07:45
PROVIDERS: ADMIT Hospitalist; ATTEND Hospitalist
DX: I16.0 Hypertensive urgency (principal); I13.0 Hypertensive heart and chronic kidney disease with heart failure and stage 1 through stage 4 chronic kidney disease, or unspecified chronic kidney disease; R07.89 Other chest pain; I50.22 Chronic systolic (congestive) heart failure; N18.3 Chronic kidney disease, stage 3 (moderate); E11.22 Type 2 diabetes mellitus with diabetic chronic kidney disease; E78.5 Hyperlipidemia, unspecified; E66.01 Morbid (severe) obesity due to excess calories; G47.33 Obstructive sleep apnea (adult) (pediatric); I25.10 Atherosclerotic heart disease of native coronary artery without angina pectoris; K21.9 Gastro-esophageal reflux disease without esophagitis; J45.909 Unspecified asthma, uncomplicated; I42.8 Other cardiomyopathies; I47.2 Ventricular tachycardia; E87.6 Hypokalemia; Z68.44 Body mass index [BMI] 60.0-69.9, adult; Z79.84 Long term (current) use of oral hypoglycemic drugs; Z79.899 Other long term (current) drug therapy; Z95.810 Presence of automatic (implantable) cardiac defibrillator
CPT/HCPCS: 80048; 82962 ×2; 83735; 84484; 85025; 93005; 99285; G0378 ×3; 36415; 36416

== ENCOUNTER 2019-06-12 18:48 | Observation (INO) | payer MEDICARE, MEDICAID ==
[2019-06-12] MEDS ORDERED: Acetaminophen 325 MG TAB PO PRN (20:58)
[2019-06-12] MEDS ORDERED: Labetalol HCl 100 MG/20 ML VIAL SLOW IVP PRN (20:58)
[2019-06-12] MEDS ORDERED: hydrALAZINE 20 MG/ML VIAL SLOW IVP PRN (20:58)
[2019-06-12 22:49] VITALS: BMI 62.0
[2019-06-12] MEDS ORDERED: hydrALAZINE 25 MG TAB PO SCH (23:00)
[2019-06-12] MEDS ORDERED: Carvedilol 25 MG TAB PO SCH (23:00)
[2019-06-12] MEDS ORDERED: VALSARTAN PO SCH (23:15)
[2019-06-12] MEDS ORDERED: SACUBITRIL PO SCH (23:15)
[2019-06-13] MEDS: Carvedilol 25 MG TAB PO SCH ×2 (08:13→16:53)
[2019-06-13] MEDS ORDERED: Nitroglycerin 0.4 MG TAB (25 Tab Bottle) SL PRN (09:11)
[2019-06-13] MEDS ORDERED: Amiodarone 200 MG TAB PO SCH (09:15)
[2019-06-13] MEDS: hydrALAZINE 25 MG TAB PO SCH ×3 (09:31→20:10)
[2019-06-13] MEDS: VALSARTAN PO SCH ×2 (09:35→20:11)
[2019-06-13] MEDS: SACUBITRIL PO SCH ×2 (09:35→20:11)
[2019-06-13] MEDS ORDERED: Clopidogrel Bisulfate 300 MG TAB PO SCH (17:30)
--- NOTE | 2019-06-13 17:48 | PRG ---
DATE OF SERVICE: 06/13/2019 SUBJECTIVE: Mr. Henning came to the hospital yesterday with "sharp" pain. He is unable to tell me whether it felt more like a pressure or more like a knife just "felt sharp." The nitroglycerin seemed to help. His cardiac enzymes were negative. OBJECTIVE: VITAL SIGNS: His blood pressure was variable, earlier was 180/103, now 122/62; pulse 62 and regular. He is 5 feet 9 inches tall, 420 pounds. BMI is 62. LUNGS: Clear. CARDIAC: Very distant due to his obesity. ABDOMEN: Obese, nontender. EXTREMITIES: There is no significant edema. ASSESSMENT: 1. Severe morbid obesity. 2. Cardiomyopathy. 3. Previous defibrillator implantation. 4. Congestive heart failure, systolic, chronic. 5. Chest pain, possibly angina. Cardiac catheterization [place] [address] James revealed the left main with no obstructive stenosis. Left anterior descending is large and ectatic. 6. Circumflex has an OM branch with no significant disease. The groove circumflex is small with a lesion, the vessel is too small to intervene on. 7. Right coronary is large right dominant with no significant disease. Also ectatic. 8. BMI as mentioned is very high 62. The patient appears to be compensated from a heart failure standpoint now. PLAN: 1. Add clopidogrel. 2. Okay to release home tomorrow. Prognosis unfortunately likely long-term is poor due to his severe continued morbid obesity. The patient understands that. Job ID: [id number]
[2019-06-13] MEDS: Furosemide 80 MG TAB PO SCH (20:11)
[2019-06-13] MEDS ORDERED: Atorvastatin Calcium 40 MG TAB PO SCH (21:00)
--- NOTE | 2019-06-14 07:28 | HP ---
CHIEF COMPLAINT: Chest pain, palpitations. HISTORY OF PRESENT ILLNESS: This patient is a 54-year-old male, with a history of known cardiomyopathy, status post AICD placement, who was admitted here on 05/22/2019 with chest pain and palpitations. He had some medication adjustments including increasing his Coreg to 50 mg b.i.d. and increasing his Imdur. The patient was to have a followup with Dr. Galan today. However, he developed recurrence of chest pains and palpitations. He initially presented to the emergency department in [place] after taking nitroglycerin without relief. By the time he arrived there, he was feeling somewhat better and apparently received some additional nitroglycerin. There is no pain subsequent and feels like he is at his baseline presently. He describes the pain as sharp, left-sided pain. It was 5-6/10, what seems to be somewhat positional. As he reported, it seemed to be worse when hitting bumps on the ride to the emergency department. He reports he has been compliant with his medication regimen. REVIEW OF SYSTEMS: Denies any shortness of breath, nausea, vomiting, diarrhea, fever, abdominal pain. All other systems reviewed. All pertinent positives and negatives noted in the HPI. PAST MEDICAL HISTORY: Notable for morbid obesity, sleep apnea. He is intolerant to CPAP. He has a history of prior cardiomyopathy with EF of 25% to 30% from the most recent echo in December, which also revealed severely dilated left atrium. He has history of DVT with shorter course of anticoagulation; diabetes mellitus; hypertension; dyslipidemia; coronary artery disease; gastroesophageal reflux; chronic kidney disease stage 3; and asthma. PAST SURGICAL HISTORY: AICD placement. SOCIAL HISTORY: The patient is , lives at home with his . He is nonsmoker, nondrinker, and nondrug user. He is full code. His would be his surrogate decision maker. FAMILY HISTORY: No history of stroke, heart disease in multiple family members. ALLERGIES: NONE. MEDICATIONS: 1. Colchicine 0.6 mg p.o. daily p.r.n. 2. Albuterol 2 puffs q.6 hours p.r.n. 3. Atorvastatin 80 mg at bedtime. 4. Aspirin 81 mg daily. 5. Amiodarone 200 mg daily. 6. Imdur 60 mg daily. 7. Lasix 80 mg b.i.d. 8. Coreg 50 mg b.i.d. 9. Potassium 20 mEq daily. 10. Omeprazole 20 mg daily. 11. Nitrostat p.r.n. 12. Hydralazine 100 mg t.i.d. 13. Glucotrol XL daily. 14. Entresto 97/103 one p.o. b.i.d. PHYSICAL EXAMINATION: VITAL SIGNS: Temperature is 98.1, pulse 67, respirations 20, O2 saturation 94% on room air, and BP 124/62. GENERAL APPEARANCE: Age-appropriate male, in no distress. Morbidly obese. Awake, alert, oriented, pleasant, and cooperative. HEENT: AGUEDA. No acute lesions. NECK: Supple and symmetric without lymphadenopathy, JVD, or bruits. HEART: Regular rate and rhythm without murmurs, gallops, or rubs. LUNGS: Clear to auscultation bilaterally with no wheezes or rales. ABDOMEN: Obese, soft, nontender, and nondistended. Positive bowel sounds. No masses. No organomegaly. EXTREMITIES: Have trace pretibial pitting edema bilaterally, slightly worse on the right than the left (the patient reports this is better than his usual baseline). PSYCH: Normal affect and behavior. NEUROLOGIC: Normal cognition. Cranial nerves intact. No gross focal deficits. LABORATORY DATA: White count 5.1, hemoglobin 13.4, platelets 283. Sodium 140, potassium 4.1, chloride 102, CO2 is 27, BUN 26, creatinine 2.13, GFR is 40, AST is 18, ALT is 18, alkaline phosphatase 52. Troponin negative x3. BNP is 28.8, albumin 4.1. Chest x-ray shows cardiomegaly with no change from prior study. IMPRESSION AND PLAN: 1. Chest pain and palpitations in a patient with a history of known significant cardiomyopathy. The patient was admitted here on 05/22/2019 with similar findings, his AICD interrogated at that time with no significant findings. He also had medication adjustments with Dr. Galan, who is his primary economist research assistant. Given his history, we will not consider a stress test at this time and we will not reinterrogate the pacemaker, but defer that to Dr. Galan, who has been consulted, otherwise continue with his current regimen including Entresto and carvedilol. We will hold the morning dose of Lasix given his renal function. 2. Acute renal insufficiency. The patient's GFR tends to be highly variable, but it looks like it is generally normal to stage 2. 3. Chronic kidney disease and currently his GFR is below baseline. Again, holding his morning dose of Lasix as he might be a bit prerenal. We will continue to monitor. 4. Hyperlipidemia. Continue atorvastatin. 5. Cardiomyopathy. Continuing with the amiodarone and beta blake. 6. Diabetes mellitus. Continue glipizide. 7. Hypertension. Continuing hydralazine, isosorbide, carvedilol, and Entresto. Job ID: [id number]
[2019-06-14 07:58] VITALS: BP 133/74; TEMP 97.6
[2019-06-14] MEDS: SACUBITRIL PO SCH (08:12)
[2019-06-14] MEDS: VALSARTAN PO SCH (08:12)
[2019-06-14] MEDS: hydrALAZINE 25 MG TAB PO SCH (08:13)
[2019-06-14] MEDS: Carvedilol 25 MG TAB PO SCH (08:14)
[2019-06-14] MEDS: Furosemide 80 MG TAB PO SCH (08:14)
[2019-06-14] MEDS ORDERED: Clopidogrel Bisulfate 75 MG TAB PO SCH (09:00)
[2019-06-14] MEDS ORDERED: Amiodarone 200 MG TAB PO SCH (09:00)
[2019-06-14] MEDS ORDERED: Aspirin Chewable 81 MG TAB PO SCH (09:00)
[2019-06-14] MEDS ORDERED: Potassium Chloride 20 MEQ TAB PO SCH (09:00)
--- NOTE | 2019-06-17 12:16 | DIS ---
DATE OF ADMISSION: 06/12/2019 DATE OF DISCHARGE: 06/14/2019 DISCHARGE DIAGNOSES: 1. Chest pain. 2. Cardiomyopathy with an ejection fraction of 25%. 3. History of coronary artery disease. 4. History of deep venous thrombosis. 5. Chronic kidney disease stage 3 with acute renal insufficiency. 6. Hyperlipidemia. 7. Diabetes mellitus. 8. Hypertension. HISTORY: This patient is a 54-year-old male with a history of the severe cardiomyopathy who had recently been admitted with similar symptoms and had his AICD interrogated. He had cardiac cath from Dr. James, previously is documented in the Cardiology consult note from Dr. Galan, which revealed no obstructive disease of the left main and a large ectatic left anterior descending with a circumflex lesion too small for intervention, ectatic right coronary without significant disease. The patient was noted to have negative troponins. He was kept on telemetry monitoring and again seen in consultation by Dr. Galan. Dr. Baldwin noted the patient's poor prognosis given his BMI of about 62 and his lack of quality compliance regarding followup in the medication regimen. Once the patient had ruled out, had no significant ectopy, he added Plavix to the regimen and felt the patient was stable for discharge to home. DISCHARGE PHYSICAL EXAMINATION: VITAL SIGNS: On the day of discharge, temperature is 97.6, pulse 70, respirations 20, O2 saturation 97% on room air, BP 133/74. GENERAL: He is morbidly obese. Awake, alert. HEART: Regular rate and rhythm without murmurs, gallops, or rubs. LUNGS: Clear bilaterally. ABDOMEN: Soft, nontender, and nondistended. Positive bowel sounds. No masses. No organomegaly. EXTREMITIES: With trace to 1+ bilateral lower extremity edema. DISPOSITION: The patient is discharged home. ACTIVITY: As tolerated. DIET: He will stay on a heart healthy low-sodium diet. DISCHARGE MEDICATIONS: He will have Plavix 75 mg daily. Other medications will remain unchanged. FOLLOWUP: He is to follow up with Florence Almaguer in [place] and Dr. Galan and he is to call to schedule that appointment. He can return to the hospital should he have any problems prior to that time. Job ID: [id number]
== END 2019-06-14 09:16 | disposition home or self-care (01) ==
LOC: ERS 18:48 → 2SW 22:29
PROVIDERS: ADMIT Internal Medicine; ATTEND Internal Medicine
DX: R07.9 Chest pain, unspecified (principal); I42.9 Cardiomyopathy, unspecified; R00.2 Palpitations; I25.10 Atherosclerotic heart disease of native coronary artery without angina pectoris; E66.01 Morbid (severe) obesity due to excess calories; G47.30 Sleep apnea, unspecified; E78.5 Hyperlipidemia, unspecified; K21.9 Gastro-esophageal reflux disease without esophagitis; N18.3 Chronic kidney disease, stage 3 (moderate); J45.909 Unspecified asthma, uncomplicated; E11.22 Type 2 diabetes mellitus with diabetic chronic kidney disease; I13.0 Hypertensive heart and chronic kidney disease with heart failure and stage 1 through stage 4 chronic kidney disease, or unspecified chronic kidney disease; I50.22 Chronic systolic (congestive) heart failure; N28.9 Disorder of kidney and ureter, unspecified; Z68.44 Body mass index [BMI] 60.0-69.9, adult; Z79.82 Long term (current) use of aspirin; Z79.84 Long term (current) use of oral hypoglycemic drugs; Z79.899 Other long term (current) drug therapy; Z86.718 Personal history of other venous thrombosis and embolism; Z95.810 Presence of automatic (implantable) cardiac defibrillator
CPT/HCPCS: 82962; 84484 ×2; 96374; 99285; G0378 ×3; 36415; 36416; J1642

== ENCOUNTER 2020-11-24 10:56 | Inpatient (IN) | payer MEDICARE, MEDICAID ==
[2020-11-24 14:19] LABS: #Eosinphils 0.2 thou/uL (0.0-0.7); #Lymphocytes 1.5 thou/uL (1.20-3.40); #Monocytes 0.5 thou/uL (0.11-0.59); #Neutrophils 3.3 thou/uL (1.40-6.50); %Basophils 0.5 % (0.0-1.0); %Eosinophils 3.1 % (0.0-10.0); %Lymphocytes 26.8 % (21.0-51.0); %Monocytes 9.7 % (0.0-10.0); Hemoglobin 11.8 g/dL (14.0-18.0); Mean Corpuscular HGB CONC 31.3 g/dL (32.0-36.0); Mean Corpuscular Hemoglobin 27.7 pg (27.0-31.0); Mean Corpuscular Volume 88.7 fL (78.0-98.0); Mean Platelet Volume 7.4 fL (7.4-10.4); Platelet Count 283 thou/uL (130-400); RBC Distribution Width 13.7 % (11.5-14.5); Red Blood Cell (RBC) Count 4.25 mill/uL (4.70-6.10); White Blood Cell (WBC) Count 5.5 thou/uL (4.8-10.8)
[2020-11-24 14:36] LABS: ALT (SGPT) 13 U/L (8-55); AST (SGOT) 15 U/L (5-34); Albumin 3.7 g/dL (3.5-5.0); Alkaline Phosphatase 60 U/L (40-110); Anion Gap 14 mmol/L (10-20); BUN (Urea Nitrogen) 23 mg/dL (8.4-25.7); Bilirubin, Total 0.7 mg/dL (0.2-1.2); Calc. Creatinine Clearance 0 mL/min (70-130); Calcium 8.4 mg/dL (7.8-10.44); Carbon Dioxide 25 mmol/L (22-29); Chloride 103 mmol/L (98-107); Glucose 93 mg/dL (70-105); Potassium 4.1 mmol/L (3.5-5.1); Protein, Total 7.7 g/dL (6.0-8.3); Sodium 138 mmol/L (136-145)
[2020-11-24] MEDS ORDERED: Potassium Chloride 20 MEQ TAB ONE (15:13)
[2020-11-24] MEDS ORDERED: Furosemide 40 MG/4 ML VIAL ONE (15:13)
[2020-11-24] MEDS ORDERED: Dextrose 5% in Water 1,000 ML IV PRN (15:17)
[2020-11-24] MEDS ORDERED: HumaLOG 300 UNITS/3 ML VIAL SC PRN ×2 (15:17)
[2020-11-24] MEDS ORDERED: Dextrose 50% Abboject 50 ML SYRINGE SLOW IVP PRN (15:17)
[2020-11-24 16:55] VITALS: BMI 60.0
[2020-11-24] MEDS ORDERED: Nitroglycerin 0.4 MG TAB (25 Tab Bottle) SL PRN (19:22)
[2020-11-24] MEDS ORDERED: Albuterol 200 PUFF (6.7GM INHALER) INH PRN (19:26)
[2020-11-24] MEDS ORDERED: Colchicine 0.6 MG TAB PO PRN (19:30)
[2020-11-24] MEDS: Atorvastatin Calcium 40 MG TAB PO SCH (20:59)
[2020-11-24] MEDS: metFORMIN 500 MG TAB PO SCH (20:59)
[2020-11-24] MEDS: Furosemide 80 MG TAB PO SCH (21:00)
[2020-11-24] MEDS: Carvedilol 25 MG TAB PO SCH (21:00)
[2020-11-24] MEDS: Sacubitril 49 MG/Valsartan 51 MG TABLET PO SCH (21:00)
[2020-11-25 01:24] LABS: SARS-CoV-2 PCR by NAA Not Detected (NotDetected)
[2020-11-25] MEDS ORDERED: Lidocaine 1% (PF) 30 ML VIAL ONE ×2 (11:04→14:15)
[2020-11-25] MEDS ORDERED: Gentamicin 80 MG/2 ML VIAL ONE (11:04)
[2020-11-25] MEDS ORDERED: CEFAZOLIN 1 GM VIAL ONE (11:04)
[2020-11-25] MEDS ORDERED: Midazolam HCl 2 mg/2 ml Vial ONE (11:22)
[2020-11-25] MEDS ORDERED: Ketamine 50 MG/ML (10ML VIAL) ONE (11:22)
[2020-11-25] MEDS ORDERED: Fentanyl 100 MCG/2 ML VIAL ONE (11:22)
[2020-11-25] MEDS ORDERED: Dexamethasone 20 MG/5 ML VIAL ONE ×2 (11:58)
[2020-11-25] MEDS ORDERED: Rocuronium Bromide 10 MG/ML (10ML VIAL) ONE (11:58)
[2020-11-25] MEDS ORDERED: Succinylcholine 200 MG/10 ml SYRINGE FS ONE (11:58)
[2020-11-25] MEDS ORDERED: Metoclopramide HCl 10 MG/2 ML VIAL ONE (11:58)
[2020-11-25] MEDS ORDERED: Ondansetron PF 4 MG/2 ML Vial ONE (11:58)
[2020-11-25] MEDS ORDERED: PHENYLEPHRINE-NS 100 MCG/ML 10 ML SYRINGE ONE (11:58)
[2020-11-25] MEDS ORDERED: Iopamidol 370 76% 50 ML VIAL FS ONE (12:49)
[2020-11-25] MEDS ORDERED: SUGAMMADEX SODIUM 200 MG/2 ML VIAL ONE (12:49)
[2020-11-25] MEDS: metFORMIN 500 MG TAB PO SCH ×2 (15:17→21:00)
[2020-11-25] MEDS: Alogliptin 25 MG TAB PO SCH (15:22)
[2020-11-25] MEDS ORDERED: Acetaminophen/Codeine 30-300mg Tablet PO PRN ×2 (15:30)
[2020-11-25] MEDS: Cholecalciferol 1,000 UNITS (25 MCG) TAB PO SCH (16:29)
[2020-11-25] MEDS: Cephalexin 250 MG CAP PO SCH ×2 (16:30→20:59)
[2020-11-25] MEDS: Carvedilol 25 MG TAB PO SCH ×2 (16:30→20:59)
[2020-11-25] MEDS: Furosemide 80 MG TAB PO SCH ×2 (16:31→20:59)
[2020-11-25] MEDS: Sacubitril 49 MG/Valsartan 51 MG TABLET PO SCH ×2 (16:31→20:58)
[2020-11-25] MEDS: Aspirin Chewable 81 MG TAB PO SCH (16:31)
[2020-11-25] MEDS: Amiodarone 200 MG TAB PO SCH (16:32)
[2020-11-25] MEDS: Atorvastatin Calcium 40 MG TAB PO SCH (21:00)
[2020-11-26] MEDS: Alogliptin 25 MG TAB PO SCH (07:52)
[2020-11-26] MEDS: Aspirin Chewable 81 MG TAB PO SCH (07:52)
[2020-11-26] MEDS: Cholecalciferol 1,000 UNITS (25 MCG) TAB PO SCH (07:52)
[2020-11-26] MEDS: Sacubitril 49 MG/Valsartan 51 MG TABLET PO SCH (07:52)
[2020-11-26] MEDS: Amiodarone 200 MG TAB PO SCH (07:54)
[2020-11-26] MEDS: metFORMIN 500 MG TAB PO SCH (07:54)
[2020-11-26] MEDS: Carvedilol 25 MG TAB PO SCH (07:54)
[2020-11-26] MEDS: Cephalexin 250 MG CAP PO SCH ×2 (07:54→13:07)
[2020-11-26] MEDS: Furosemide 80 MG TAB PO SCH (07:55)
[2020-11-26 12:12] VITALS: BP 127/82; TEMP 97.8
== END 2020-11-26 14:00 | disposition home or self-care (01) | DRG 227 ==
LOC: ERS 10:56 → 2SW 14:58 → OBSVTOIN 11-26 10:47
PROVIDERS: ADMIT Student in an Organized Health Care Education/Training Program; ATTEND Student in an Organized Health Care Education/Training Program
PROC: 0JH609Z Insertion of Cardiac Resynchronization Defibrillator Pulse Generator into Chest Subcutaneous Tissue and Fascia, Open Approach (ICD-10-PCS; principal; 2020-11-25)
PROC: 02HL3KZ Insertion of Defibrillator Lead into Left Ventricle, Percutaneous Approach (ICD-10-PCS; 2020-11-25)
PROC: 02H63KZ Insertion of Defibrillator Lead into Right Atrium, Percutaneous Approach (ICD-10-PCS; 2020-11-25)
PROC: 0JPT0PZ Removal of Cardiac Rhythm Related Device from Trunk Subcutaneous Tissue and Fascia, Open Approach (ICD-10-PCS; 2020-11-25)
DX: Z45.02 Encounter for adjustment and management of automatic implantable cardiac defibrillator (principal); Z68.43 Body mass index [BMI] 50.0-59.9, adult; I50.22 Chronic systolic (congestive) heart failure; I42.8 Other cardiomyopathies; I48.19 Other persistent atrial fibrillation; Z20.822 Contact with and (suspected) exposure to COVID-19; E11.9 Type 2 diabetes mellitus without complications; I11.0 Hypertensive heart disease with heart failure; E78.5 Hyperlipidemia, unspecified; G47.33 Obstructive sleep apnea (adult) (pediatric); I44.7 Left bundle-branch block, unspecified; M10.9 Gout, unspecified; E66.01 Morbid (severe) obesity due to excess calories; I25.10 Atherosclerotic heart disease of native coronary artery without angina pectoris; Z79.82 Long term (current) use of aspirin; Z79.84 Long term (current) use of oral hypoglycemic drugs; Z79.899 Other long term (current) drug therapy; Z83.3 Family history of diabetes mellitus
CPT/HCPCS: 33224; 33264; 36005; 36416; 71045; 75820; 76942; 80053; 83880; 84484; 85025; 87635; 93005; 93010; 96374; C1769; C1882; C1898; C1900; G0378; J0690; J1100; J1580; J1940; J2001; J2250; J2405; J2765; J3010; Q9967; U0003; U0005

== ENCOUNTER 2024-08-04 09:55 | Emergency (ER) | payer MEDICARE, OTHER ==
[2024-08-04 10:42] LABS: #Basophils 0.03 10x3/uL (0.0-0.2); %Basophils 0.5 % (0.0-1.0); %Eosinophils 4.2 % (0.0-10.0); %Lymphocytes 17.9 % (21.0-51.0); %Monocytes 7.2 % (0.0-10.0); %Neutrophils 69.5 % (42.0-75.0); Hematocrit 35.6 % (42.0-52.0); Mean Corpuscular HGB CONC 30.9 g/dL (32.0-36.0); Mean Corpuscular Hemoglobin 28.1 pg (27.0-31.0); Mean Corpuscular Volume 90.8 fL (78.0-98.0); Mean Platelet Volume 10.1 fL (7.4-10.4); Platelet Count 192 10x3/uL (130-400); RBC Distribution Width 15.3 % (11.5-14.5); Red Blood Cell (RBC) Count 3.92 mill/uL (4.70-6.10)
[2024-08-04 11:00] LABS: ALT (SGPT) 17 U/L (8-55); AST (SGOT) 21 U/L (5-34); Albumin 3.2 g/dL (3.5-5.0); Alkaline Phosphatase 53 U/L (40-110); Anion Gap 14 mmol/L (10-20); BUN (Urea Nitrogen) 20 mg/dL (8.4-25.7); Bilirubin, Total 0.8 mg/dL (0.2-1.2); Calc. Creatinine Clearance 0 mL/min (70-130); Calcium 8.2 mg/dL (7.8-10.44); Carbon Dioxide 26 mmol/L (22-29); Chloride 104 mmol/L (98-107); Estimated GFR 50; Globulin 3.9 g/dL (2.4-3.5); Glucose 118 mg/dL (70-105); Potassium 4.7 mmol/L (3.5-5.1); Protein, Total 7.1 g/dL (6.0-8.3); Sodium 139 mmol/L (136-145)
[2024-08-04 11:06] LABS: Troponin I 0.018 ng/mL (< 0.028)
[2024-08-04] MEDS ORDERED: Furosemide 40 MG (4 mL) VIAL ONE (12:48)
== END 2024-08-04 12:47 | disposition home or self-care (01) ==
LOC: ERS 09:55
DX: J90 Pleural effusion, not elsewhere classified (principal); I11.0 Hypertensive heart disease with heart failure; I50.9 Heart failure, unspecified; E11.9 Type 2 diabetes mellitus without complications; J44.9 Chronic obstructive pulmonary disease, unspecified
CPT/HCPCS: 71045; 74174; 80053; 83880; 84484; 85025; 93005; J1940; 36415; 96374